=== PATIENT | male | born 1980 | race Two or more races ===

== ENCOUNTER 2020-08-21 10:28 | Outpatient (REF) | payer OTHER, SELFPAY ==
--- NOTE | 2020-08-21 10:35 | XR_ITS ---
EXAMINATION: XR CHEST CLINICAL INFORMATION: Shortness of breath. COMPARISON: None TECHNIQUE: 2 views of the chest were obtained. FINDINGS: No significant abnormality is noted involving the heart, lungs, mediastinum, bony thorax or soft tissues. XR/XR chest 2V IMPRESSION: Unremarkable chest examination.
== END 2020-08-21 10:29 | disposition home or self-care (01) ==
LOC: HO.HMGCX 10:28
PROVIDERS: PCP Nurse Practitioner Family; Visit Provider Hospitalist
DX: R06.02 Shortness of breath (principal)
CPT/HCPCS: 71046

== ENCOUNTER 2020-08-21 10:38 | Outpatient (REF) | payer OTHER, SELFPAY | END 2020-08-21 10:39 | disposition home or self-care (01) | LOC: HO.LAB 10:38 | PROVIDERS: Visit Provider Hospitalist | DX: U07.1 COVID-19 (principal) | CPT/HCPCS: U0003 ==

== ENCOUNTER 2021-04-25 16:43 | Outpatient (REF) | payer OTHER, SELFPAY | END 2021-04-25 16:44 | disposition home or self-care (01) | LOC: HO.LNP 16:43 | PROVIDERS: Visit Provider Internal Medicine | DX: J06.9 Acute upper respiratory infection, unspecified (principal); Z20.822 Contact with and (suspected) exposure to COVID-19 | CPT/HCPCS: U0003; U0005 ==

== ENCOUNTER 2021-09-13 08:28 | Outpatient (REF) | payer OTHER, SELFPAY ==
[2021-09-13 11:37] LABS: Appearance Urine HAZY; Color Urine YELLOW; Glucose Urine UA NEG (NEG); Leukocyte Esterase Urine NEG (NEG); Nitrite Urine NEG (NEG); Specific Gravity - Urine 1.015 (1.005-1.025); Urine Blood NEG (NEG); Urine Ketones NEG (NEG); Urine Protein NEG (NEG-TRACE)
[2021-09-13 12:09] LABS: Alanine Aminotransferase 13 U/L (0-40); Albumin Level 4.2 g/dL (3.5-5.0); Alkaline Phosphatase 73 U/L (39-117); Anion Gap 8 (12-20); Aspartate Amino Transferase 14 U/L (5-37); Bilirubin Total 0.7 mg/dL (0.0-1.0); Blood Urea Nitrogen 16 mg/dL (9-16); Calcium 9.3 mg/dL (8.4-10.2); Carbon Dioxide 28 mmol/L (22-29); Chloride 105 mmol/L (96-108); Cholesterol 167 mg/dL; Estimated Glomerular Filt Rate > 60; Glucose Fasting 95 mg/dL (60-99); HDL Cholesterol 43 mg/dL; LDL Cholesterol Calculated 106 mg/dl; Potassium 4.4 mmol/L (3.3-5.1); Sodium 137 mmol/L (135-145); Total Protein 7.4 g/dL (6.5-8.0); Triglycerides 91 mg/dL
[2021-09-13 12:29] LABS: TSH reflex Free T4 0.55 uIU/mL (0.32-4.0)
== END 2021-09-13 08:29 | disposition home or self-care (01) ==
LOC: HO.HMGCLDS 08:28
PROVIDERS: PCP Nurse Practitioner Family; Visit Provider Nurse Practitioner Family
DX: Z00.00 Encounter for general adult medical examination without abnormal findings (principal)
CPT/HCPCS: 36415; 80053; 80061; 81003; 84443

== ENCOUNTER 2022-10-07 12:10 | Outpatient (REF) | payer OTHER, SELFPAY ==
--- NOTE | ~2022-10-07 | XR_ITS ---
EXAMINATION: XR KNEE, RIGHT CLINICAL INFORMATION: Knee sprain. COMPARISON: None TECHNIQUE: Four views of the right knee. FINDINGS: Bones and soft tissues appear unremarkable. No fracture or joint effusion appreciated. Alignment is anatomic. Joint spaces are well maintained. No abnormal soft tissue calcification. XR/XR knee RT 4V IMPRESSION: Normal plain film examination of the right knee.
== END 2022-10-07 12:11 | disposition home or self-care (01) ==
LOC: HO.HMGCX 12:10
PROVIDERS: PCP Nurse Practitioner Family; Visit Provider Internal Medicine
DX: S83.91XA Sprain of unspecified site of right knee, initial encounter (principal)
CPT/HCPCS: 73564

== ENCOUNTER 2022-11-21 21:52 | Emergency (ER) | payer OTHER, SELFPAY ==
--- NOTE | ~2022-11-21 | XR_ITS ---
EXAMINATION: XR CHEST CLINICAL INFORMATION: Chest pain COMPARISON: None available. TECHNIQUE: Frontal view of the chest was obtained. FINDINGS: No significant abnormality is noted involving the heart, lungs, mediastinum, bony thorax or soft tissues. XR/XR chest 1V IMPRESSION: Unremarkable chest examination.
--- NOTE | 2022-11-21 21:57 | ECG_ITS ---
Test Reason : CHEST PAIN Blood Pressure : / mmHG Vent. Rate : 076 BPM Atrial Rate : 076 BPM P-R Int : 152 ms QRS Dur : 088 ms QT Int : 368 ms P-R-T Axes : 030 024 010 degrees QTc Int : 414 ms Normal sinus rhythm Cannot rule out Inferior infarct , age undetermined Abnormal ECG No previous ECGs available Referred By: Generic ED Physician Electronically Signed By:JOSE MANUEL CONCEPCION MD
[2022-11-21 21:58] VITALS: BP 146/92; PULSE 88; RESP 16; TEMP 36.8; O2SAT 97; BMI 41.5
[2022-11-21 22:15] LABS: MANUAL DIFF FLAG NO
[2022-11-21 22:16] LABS: Basophils Percent Auto 0.3 % (0-2); Eosinophils Absolute Auto 0.1 X10*3/uL (0.0-0.4); Hematocrit 41.7 % (42.0-52.0); Hemoglobin 14.6 g/dl (14.0-18.0); Imm Gran Abs Auto 0.04 X10*3/uL (0.00-0.03); Imm Gran Pct Auto 0.4 % (0.0-0.4); Lymphocytes Absolute Auto 2.6 X10*3/uL (1.2-4.9); Lymphocytes Percent Auto 26.2 % (20-40); Mean Corpuscular Hemoglobin 29.9 pg (27.0-33.0); Mean Corpuscular Volume 85.3 fL (80.0-98.0); Mean Platelet Volume 8.4 fL (9.4-12.4); Monocytes Percent Auto 10.6 % (2-11); Neutrophils Percent Auto 61.5 % (45-73); Platelet Count 301 X10*3/uL (160-400); Red Blood Count 4.89 X10*6/uL (4.60-5.80); Red Cell Distribution Width 12.2 % (11.0-16.0); White Blood Count 9.8 X10*3/uL (4.8-10.8)
[2022-11-21 22:23] VITALS: BP 143/82; PULSE 89; RESP 16; TEMP 36.9; O2SAT 97
[2022-11-21 22:34] LABS: Anion Gap 13 (12-20); Blood Urea Nitrogen 16 mg/dL (9-16); Calcium 9.2 mg/dL (8.4-10.2); Carbon Dioxide 26 mmol/L (22-29); Chloride 104 mmol/L (96-108); Creatinine Clr Calc Pharmacy 110.8; Estimated Glomerular Filt Rate > 60; Glucose Random 97 mg/dL (60-115); Sodium 139 mmol/L (135-145)
--- NOTE | 2022-11-21 22:47 | ED_ITS ---
HPI - Chest Pain General Chief Complaint: Chest Pain Stated Complaint: headache,chest pain Time Seen by Provider: 11/21/22 22:43 Source: patient Mode of arrival: ambulatory Limitations: no limitations History of Present Illness HPI narrative: Patient obese complaining of headache body aches for last few days got worse today notices blood pressure also 150/80 range. Patient has gained weight lately does snore in the night no diagnosis of sleep apnea as such but whenever he gets up in the morning feels tired and has headaches. No head injury no chest pain or palpitation no shortness of breath but patient feels exhausted Related Data Previous Rx's Medication Instructions Recorded meloxicam 15 mg tablet 15 mg PO DAILY #14 tabs 10/07/22 Allergies Allergy/AdvReac Type Severity Reaction Status Date / Time No Known Allergies Allergy Verified 11/21/22 21:58 Review of Systems Review of Systems: Yes all other systems are reviewed and are negative PENDING SALE TO [facility] Social History Social History Housing: House Alcohol intake: current Alcohol intake frequency: holidays/special occasions only Patient Tobacco Use Status: Former Tobacco user Years Smoked: quit 14 years ago Smoked in Last 30 Days: Yes e-Cigarette/Vaping Use: Currently Using Second Hand Smoke Exposure: No Use of substances other than those prescribed or required for medical reasons: No Advance Directives: No Advance Directives Information Provided: No service: No Current occupational status: employed Current occupation: [employer] Current occupational exposures/hazards: Yes Physical Exam Vital Signs: Vital Signs: Last Vital Signs Temp 98.4 F 11/21/22 22:23 Pulse 76 11/22/22 00:31 Resp 20 11/22/22 00:31 BP 131/59 L 11/22/22 00:31 Pulse Ox 97 11/22/22 00:31 O2 Del Method Room Air 11/22/22 00:31 BMI result Body Mass Index 41.5 Appearance: Alert. Oriented X3. No acute distress. Eyes: PERRLA, No Nystagmus ENT: Pharynx normal. Oral Mucosa moist Neck: Normal inspection. Neck supple. Short neck CVS: Normal heart rate and rhythm. Pulses normal. Respiratory: No respiratory distress. Equal air entry bilateral, no wheezing/rales/rhonchi Abdomen: Soft and nontender. Bowel sounds are present, no mass palpable, no CVA tenderness Skin: Skin warm and dry. Normal skin color. Normal skin turgor. Extremities: No lower extremity edema. No calf tenderness Neuro: Oriented X 3. No motor deficit. No sensory deficit.No cerebellar signs , cranial nerves II-XII intact Medical Decision Making Medical Decision Making [facility] Narrative: Patient obese Phys pre snoring likely has apneic spell likely has obstructive sleep apnea patient unaware of this. Labs are stable venous gases showed normal pCO2 level. Headache is not severe patient took Advil prior to arrival and feels better. Patient advised to follow-up with trial court judge for sleep studies. Repeat blood pressure was normal 131/59 Lab Data [facility] Lab Attestation statement: I reviewed the patient's lab results. 11/21/22 22:10 11/21/22 22:10 Labs: Lab Results 11/21/22 11/21/22 11/21/22 Range/Units 22:10 22:10 22:10 WBC 9.8 (4.8-10.8) X10*3/uL RBC 4.89 (4.60-5.80) X10*6/uL Hgb 14.6 (14.0-18.0) g/dl Hct 41.7 L (42.0-52.0) % MCV 85.3 (80.0-98.0) fL MCH 29.9 (27.0-33.0) pg MCHC 35.0 (31.0-36.0) g/dl RDW 12.2 (11.0-16.0) % Plt Count 301 (160-400) X10*3/uL MPV 8.4 L (9.4-12.4) fL Immature Gran % (Auto) 0.4 (0.0-0.4) % Neut % (Auto) 61.5 (45-73) % Lymph % (Auto) 26.2 (20-40) % Blanco % (Auto) 10.6 (2-11) % Eos % (Auto) 1.0 (0-4) % Baso % (Auto) 0.3 (0-2) % Lymph # (Auto) 2.6 (1.2-4.9) X10*3/uL Blanco # (Auto) 1.0 (0.1-1.2) X10*3/uL Eos # (Auto) 0.1 (0.0-0.4) X10*3/uL Baso # (Auto) 0.0 (0.0-0.2) X10*3/uL Abs Immat Gran (auto) 0.04 H (0.00-0.03) X10*3/uL Absolute Neuts (auto) 6.0 (2.0-8.3) x10*3/uL Absolute Nucleated RBC 0.000 (0.0-0.012) X10*3/uL Nucleated RBC % (auto) 0.0 (0.0-0.2) /100WBC VBG pH (7.32-7.43) VBG pCO2 mmHg VBG pO2 mmHg VBG HCO3 (22-26) mmol/L VBG O2 Saturation % VBG Base Excess mmol/L Sodium 139 (135-145) mmol/L Potassium 4.0 (3.3-5.1) mmol/L Chloride 104 (96-108) mmol/L Carbon Dioxide 26 (22-29) mmol/L Anion Gap 13 (12-20) BUN 16 (9-16) mg/dL Creatinine 1.01 (0.5-1.4) mg/dL Estim Creat Clear Calc 110.8 Estimated GFR > 60 Random Glucose 97 (60-115) mg/dL Calcium 9.2 (8.4-10.2) mg/dL Troponin I High Sens < 3.5 (<3.5-35.0) ng/L COVID-19 ([facility]) (Negative) COVID-19 Clin Com 11/21/22 11/21/22 Range/Units 23:28 23:36 WBC (4.8-10.8) X10*3/uL RBC (4.60-5.80) X10*6/uL Hgb (14.0-18.0) g/dl Hct (42.0-52.0) % MCV (80.0-98.0) fL MCH (27.0-33.0) pg MCHC (31.0-36.0) g/dl RDW (11.0-16.0) % Plt Count (160-400) X10*3/uL MPV (9.4-12.4) fL Immature Gran % (Auto) (0.0-0.4) % Neut % (Auto) (45-73) % Lymph % (Auto) (20-40) % Blanco % (Auto) (2-11) % Eos % (Auto) (0-4) % Baso % (Auto) (0-2) % Lymph # (Auto) (1.2-4.9) X10*3/uL Blanco # (Auto) (0.1-1.2) X10*3/uL Eos # (Auto) (0.0-0.4) X10*3/uL Baso # (Auto) (0.0-0.2) X10*3/uL Abs Immat Gran (auto) (0.00-0.03) X10*3/uL Absolute Neuts (auto) (2.0-8.3) x10*3/uL Absolute Nucleated RBC (0.0-0.012) X10*3/uL Nucleated RBC % (auto) (0.0-0.2) /100WBC VBG pH 7.41 (7.32-7.43) VBG pCO2 36 mmHg VBG pO2 53 mmHg VBG HCO3 23 (22-26) mmol/L VBG O2 Saturation 84.0 % VBG Base Excess -0.6 mmol/L Sodium (135-145) mmol/L Potassium (3.3-5.1) mmol/L Chloride (96-108) mmol/L Carbon Dioxide (22-29) mmol/L Anion Gap (12-20) BUN (9-16) mg/dL Creatinine (0.5-1.4) mg/dL Estim Creat Clear Calc Estimated GFR Random Glucose (60-115) mg/dL Calcium (8.4-10.2) mg/dL Troponin I High Sens (<3.5-35.0) ng/L COVID-19 ([facility]) Negative (Negative) COVID-19 Clin Com See Note Independent Interpretation I performed an independent interpretation of an: EKG Interpretation: Number sinus rhythm heart rate 76 beats per minute normal interval normal axis no acute ST changes no acute ischemia Discharge Plan Discharge Clinical Impression: Obstructive sleep apnea Patient Disposition: Home, Self-Care Instructions: Sleep Apnea (DC) Additional Instructions: Likely you have sleep apnea Try to reduce weight Follow-up with trial court judge for further studies Prescriptions: No Action meloxicam 15 mg tablet 15 mg PO DAILY Qty: 14 0RF Referrals: Brian Clark MD [Physician] - 1 week Stand Alone Forms: Work/School Release Interventions: ED Discharge Assessment Last Done: 11/22/22 00:35 Discharge Date/Time: 11/22/22 00:37
[2022-11-21 22:50] LABS: Troponin-I High Sensitivity < 3.5 ng/L (<3.5-35.0)
[2022-11-21 23:24] VITALS: BP 113/67; PULSE 75; RESP 16
[2022-11-21 23:44] LABS: Venous Blood Gas Refer to POC result
[2022-11-21 23:44] LABS: VBG Base Excess -0.6 mmol/L; VBG HCO3 23 mmol/L (22-26); VBG pCO2 36 mmHg; VBG pH 7.41 (7.32-7.43); VBG pO2 53 mmHg
--- NOTE | 2022-11-21 23:45 | PC.NURSE ---
Pt A&Ox4, denies any pain, reports intermittent CP now resolved, started midday today with a headache. Pt reports it started on left side of chest radiated to upper left shoulder. Pt on bedside monitor, HR 75 NSR , VSS. VBG blood work collected and sent to lab by internal medicine veterinary technician.
[2022-11-21 23:54] LABS: COVID-19 Test Negative (Negative); IDNOW Serial# 9DB6401D
[2022-11-22 00:31] VITALS: BP 131/59; PULSE 76; RESP 20; O2SAT 97
== END 2022-11-22 00:37 | disposition home or self-care (01) ==
PROVIDERS: Emergency Provider Internal Medicine; PCP Nurse Practitioner Family
DX: R06.83 Snoring (principal); G47.33 Obstructive sleep apnea (adult) (pediatric); R51.9 Headache, unspecified; R53.83 Other fatigue; Z20.822 Contact with and (suspected) exposure to COVID-19
CPT/HCPCS: 36415; 71045; 80048; 82803; 84484; 85025; 87635; 93005; 99283; 99285

== ENCOUNTER 2023-10-20 07:35 | Outpatient (AMB) | payer OTHER, SELFPAY ==
--- NOTE | 2023-10-20 07:38 | A.OFFPC_ITS ---
Vital Signs 10/20/23 07:40 Height 5 ft 5 in Weight 262 lb BMI 43.6 BP 104/62 Blood Pressure Location Rt brachial Position Sitting Pulse 60 Pulse Source Pulse Oximeter Pulse Oximetry (%) 100 Oxygen Delivery Method Room Air Intake Visit Reasons: PHY Intake Note: Pt is here today for his PE Allergies No Known Allergies Allergy (Verified 10/20/23 07:38) Medication List - Last Reconciled 10/20/23 by ELIZABETH Blood No Known Home Meds Tobacco use date assessed: 10/20/23 Dental Screening Dental Screen Date: 10/20/23 Did you have a dental visit in the last 12 months?: Yes Did you have a dental problem in the last 6 months where you did not have access to dental care?: No Was dental information given to patient?: Patient has dentist HPI PHY HPI Details Pt is here for a PE. Will order labs. PFSH Family History Maternal Uncle Mental health disorder Social History Housing: House Alcohol intake: current Alcohol intake frequency: holidays/special occasions only Patient Tobacco Use Status: Former Tobacco user Years Smoked: quit 14 years ago e-Cigarette/Vaping Use: Currently Using Second Hand Smoke Exposure: No service: No Current occupational status: employed Current occupation: [employer] Current occupational exposures/hazards: Yes Questionnaire PHQ-9 Over the last 2 weeks, how often have you been bothered by any of the following problems? 1. Little interest or pleasure in doing things: not at all 2. Feeling down, depressed, or hopeless: not at all 3. Trouble falling or staying asleep, or sleeping too much: not at all 4. Feeling tired or having little energy: not at all 5. Poor appetite or overeating: not at all 6. Feeling bad about yourself - or that you are a failure or have let yourself or your family down: not at all 7. Trouble concentrating on things, such as reading the newspaper or watching television: not at all 8. Moving or speaking so slowly that other people could have noticed. Or the opposite - being so fidgety or restless that you have been moving around a lot more than usual: not at all 9. Thoughts that you would be better off or of hurting yourself in some way: not at all Total score: 0 Depression Screening Interpretation: Negative Depression Screening Done: Yes 37215 - PHQ-9 Billing: Yes Source: Developed by Drs. Jp Plunkett, Tamika Esteban, Neville Fry and colleagues, with an educational medina from [employer]. Thrive Questionnaire Date Thrive assessed: 10/20/23 I am a: Patient What is your living situation today?: I have a steady place to live Within the past 12 months, did the food you bought not last and you didn't have the money to get more?: Never true Within the past 12 months, did you worry whether your food would run out before you got money to buy more?: Never true Do you have trouble paying for medicines?: No Do you have trouble getting transportation to medical appointments?: No Do you have trouble paying your heating and electricity bill?: No Do you have trouble taking care of your child, family member or friend?: No Do you have trouble with day-to-day activities such as bathing, preparing meals, shopping, managing finances, etc.?: No Are you currently unemployed and looking for a job?: No Are you interested in more education?: No Currently or been in a relationship where the following occur: no concerns reported THRIVE Score: 0 AUDIT C Alcohol Use Questionnaire (AUDIT-C) 1. How often do you have a drink containing alcohol?: Monthly or less 2. How many drinks containing alcohol do you have on a typical day when you are drinking?: 1 or 2 3. How often do you have six or more drinks on one occasion?: Never Total Score: 1 Score Reviewed/Action Taken: Yes GURINDER-7 AMB Questionnaire GURINDER-7 Date GURINDER - 7 assessed: 10/20/23 Feeling nervous, anxious, or on edge: 0 = Not at all Not being able to stop or control worryin = Not at all Worrying too much about different things: 0 = Not at all Trouble relaxin = Not at all Being so restless that it is hard to sit still: 1 = Several days Becoming easily annoyed or irritable: 1 = Several days Feeling afraid as if something awful might happen: 0 = Not at all Total GURINDER-7 score (0-4 normal; 5-9 mild; 10-14 moderate; 15-21 severe): 2 Source: Developed by Drs. Jp Plunkett, Tamika Esteban, Neville Fry and colleagues, with an educational medina from [employer]. GURINDER-7 Assessment Billing GURINDER-7 Assessment Tool: GURINDER-7 Assessment 06070 Review of Systems Const Denies chills and Denies fever(s) Eyes Denies blurry vision ENT Denies vertigo, Denies dizziness and Denies sore throat Card Denies chest pain at rest, Denies chest pain with activity, Denies diaphoresis, Denies dyspnea and Denies dyspnea on exertion Resp Denies cough, Denies dyspnea, Denies dyspnea on exertion and Denies wheezing GI Denies abdominal pain, Denies melena, Denies hematochezia, Denies constipation, Denies diarrhea and Denies loose stools Denies hematuria Musc Denies numbness and Denies tingling Skin/Breast Denies lesions Neuro Denies vertigo, Denies dizziness, Denies numbness and Denies tingling Psych Denies anxiety, Denies depression, Denies homicidal ideation, Denies suicidal ideation and Denies other (substance abuse) Aller/Immun Denies wheezing Physical exam (Primary Care) Vital Signs: Last Vital Signs Pulse 60 10/20/23 07:40 BP 104/62 10/20/23 07:40 Pulse Ox 100 10/20/23 07:40 Oxygen Delivery Method Room Air 10/20/23 07:40 BMI result Body Mass Index 43.6 Tobacco/Smoking Status: Tobacco use Status Tobacco use date assessed 10/20/23 10/20/23 07:43 Patient Tobacco Use Status Former Tobacco user 10/20/23 07:43 e-Cigarette/Vaping Use Currently Using 10/20/23 07:43 Depression Screening Interpretation: Negative Thrive Assessment: Date of Thrive Assessment Date Thrive assessed 09/12/21 10/20/23 07:43 Currently or been in a relationship where the following occur: no concerns repor maureen Const General: cooperative Nutritional Appearance: obese morbidly obese Orientation/consciousness: patient oriented x3 HENMT Head: Yes normal to inspection, Yes normocephalic and Yes atraumatic Ears: TM's normal bilaterally Eyes General: appearance normal, both eyes and all related structures Alignment and Position: alignment normal and position normal Neck Neck: Yes normal visual inspection and Yes no lymphadenopathy Thyroid: Thyroid normal Resp Effort & Inspection: normal respiratory effort Auscultation: clear to auscultation bilaterally Cardio Rate: regular rate Rhythm: regular rhythm Heart sounds: S1 normal heart sound present, S2 normal heart sound present and no murmurs GI Palpation (GI): Soft to palpation and nontender Auscultation: normal bowel sounds Male General Exam: Yes normal external exam Penis: normal penis Scrotum: scrotum normal, testes descended bilaterally and no inguinal hernias Testes: no testicular mass Skin Rashes: no rashes Neuro General: patient oriented x3, moves all extremities, no focal motor deficits and deep tendon reflexes 2+ bilaterally Romberg Test: Negative Psych Appearance: grossly normal Mental Status: mental status grossly normal Speech and movement: Normal speech and movement present Affect: normal affect Attitude: cooperative Thought process: Normal thought process present Thought content: Normal thought content present Insight: Good insight present (Psych) Judgement: Good judgement present (Psych) Assessment and Plan Assessment & Plan (1) Physical exam: Code(s): Z00.00 - Encounter for general adult medical examination without abnormal findings Plan: Labs ordered Plan The patient agreed to the use of a bacteriologist medical for this encounter. Scribed for ELIZABETH Bae by Vane Farooq bacteriologist medical, on 10/20/2023 at 07:50 EST. Orders: Orders Complete Blood Count Auto Diff Today Z00.00 - Encounter for general adult medical examination without abnormal findings Comprehensive [place]. Panel Fast Today Z00.00 - Encounter for general adult medical examination without abnormal findings TSH reflex Free T4 Today Z00.00 - Encounter for general adult medical examination without abnormal findings UA CC w/rflx Micro + Cult Today Z00.00 - Encounter for general adult medical examination without abnormal findings Lipid Panel Today Z00.00 - Encounter for general adult medical examination without abnormal findings Coding Level of Care Code Est Pt Prev Care 40-64y(64393) Diagnoses Physical exam Z00. Additional Codes GURINDER-7 Assessment Billing - GURINDER-7 Assessment Tool: GURINDER-7 Assessment [id number] ([id number])
[2023-10-20 07:40] VITALS: BP 104/62; PULSE 60; O2SAT 100; BMI 43.6
== END 2023-10-20 07:56 | disposition home or self-care (01) ==
PROVIDERS: PCP Nurse Practitioner Family; Visit Provider Nurse Practitioner Family
DX: Z00.00 Encounter for general adult medical examination without abnormal findings (principal)
CPT/HCPCS: 99396

== ENCOUNTER 2023-10-20 07:56 | Outpatient (REF) | payer OTHER, SELFPAY ==
[2023-10-20 10:57] LABS: MANUAL DIFF FLAG NO
[2023-10-20 11:06] LABS: Appearance Urine Clear; Color Urine Dark Yellow; Glucose Urine UA Negative (Negative); Leukocyte Esterase Urine Negative (Negative); Nitrite Urine Negative (Negative); PH 6.5 (5.0-9.0); Specific Gravity - Urine >= 1.030 (1.005-1.025); Urine Blood Negative (Negative); Urine Ketones Trace mg/dL (Negative); Urine Protein Negative (Neg-Trace)
[2023-10-20 11:08] LABS: Basophils Percent Auto 0.3 % (0-2); Eosinophils Absolute Auto 0.1 X10*3/uL (0.0-0.4); Eosinophils Percent Auto 1.1 % (0-4); Hematocrit 42.7 % (42.0-52.0); Imm Gran Abs Auto 0.03 X10*3/uL (0.00-0.03); Imm Gran Pct Auto 0.4 % (0.0-0.4); Lymphocytes Absolute Auto 1.6 X10*3/uL (1.2-4.9); Mean Corpuscular HGB Conc 35.1 g/dl (31.0-36.0); Mean Corpuscular Hemoglobin 30.5 pg (27.0-33.0); Mean Platelet Volume 9.1 fL (9.4-12.4); Monocytes Absolute Auto 0.8 X10*3/uL (0.1-1.2); Monocytes Percent Auto 9.9 % (2-11); Neutrophils Absolute Auto 5.4 x10*3/uL (2.0-8.3); Neutrophils Percent Auto 68.3 % (45-73); Platelet Count 285 X10*3/uL (160-400); Red Blood Count 4.91 X10*6/uL (4.60-5.80); Red Cell Distribution Width 12.4 % (11.0-16.0); White Blood Count 7.9 X10*3/uL (4.8-10.8)
[2023-10-20 11:32] LABS: Alanine Aminotransferase 23 U/L (0-40); Albumin Level 4.2 g/dL (3.5-5.0); Alkaline Phosphatase 68 U/L (39-117); Anion Gap 12 (12-20); Aspartate Amino Transferase 18 U/L (5-37); Bilirubin Total 0.6 mg/dL (0.0-1.0); Blood Urea Nitrogen 14 mg/dL (9-16); Calcium 9.4 mg/dL (8.4-10.2); Carbon Dioxide 26 mmol/L (22-29); Chloride 102 mmol/L (96-108); Cholesterol 173 mg/dL (<200); Estimated Glomerular Filt Rate > 60; Glucose Fasting 106 mg/dL (60-99); HDL Cholesterol 44 mg/dL (>40); LDL Cholesterol Calculated 107 mg/dL (<100); Potassium 3.6 mmol/L (3.3-5.1); Sodium 136 mmol/L (135-145); Total Protein 7.5 g/dL (6.5-8.0); Triglycerides 112 mg/dL (<150)
[2023-10-20 11:52] LABS: TSH reflex Free T4 0.95 uIU/mL (0.32-4.0)
== END 2023-10-20 07:57 | disposition home or self-care (01) ==
LOC: HO.HMGCLDS 07:56
PROVIDERS: PCP Nurse Practitioner Family; Visit Provider Nurse Practitioner Family
DX: Z00.00 Encounter for general adult medical examination without abnormal findings (principal)
CPT/HCPCS: 36415; 80053; 80061; 81003; 84443; 85025

== ENCOUNTER 2024-07-05 08:06 | Outpatient (AMB) | payer OTHER, SELFPAY ==
[2024-07-05 08:15] VITALS: BP 112/76; PULSE 88; O2SAT 97; BMI 43.6
--- NOTE | 2024-07-05 08:15 | AM.OFFWIN_ITS ---
Intake Vital Signs 07/05/24 08:15 Height 5 ft 5 in Weight 262 lb BMI 43.6 BP 112/76 Blood Pressure Location Rt brachial Position Sitting Pulse 88 Pulse Source Pulse Oximeter Pulse Oximetry (%) 97 Intake Visit Reasons: EP lower back pain over 2 weeks Patient Tobacco Use Status: Former Tobacco user Allergies No Known Allergies Allergy (Verified 10/20/23 07:38) HPI HPI Comments History of Present Illness Details Patient is a 43-year-old male complaining over 2 weeks of low back pain that radiates into his buttocks and around the front of his thighs. He denies any loss of control of his bladder or bowels, fevers, nausea, vomiting, diarrhea, pain with urination, or blood in his urine. 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 He has tried Tylenol ibuprofen with minimal relief. He has also tried patches on his low back and that seems to help for a little while. He is tells me it seems to be the same and not getting any better over time. PFSH Family History Maternal Uncle Mental health disorder Social History Housing: House Alcohol intake: current Alcohol intake frequency: holidays/special occasions only Patient Tobacco Use Status: Former Tobacco user Years Smoked: quit 14 years ago e-Cigarette/Vaping Use: Currently Using Second Hand Smoke Exposure: No service: No Current occupational status: employed Current occupation: [employer] Current occupational exposures/hazards: Yes Review of Systems Const All systems reviewed & are unremarkable except as noted in HPI and below Physical Exam Vital Signs: Last Vital Signs Pulse 88 07/05/24 08:15 BP 112/76 07/05/24 08:15 Pulse Ox 97 07/05/24 08:15 BMI result Body Mass Index 43.6 Const General: cooperative, healthy appearing and comfortable Orientation/consciousness: patient oriented x3 HEENT Head: Yes normal to inspection and Yes normocephalic General nose exam: Normal external nose present Face and sinus: Yes normal facial exam Eyes General: appearance normal, both eyes and all related structures Resp Effort & Inspection: normal respiratory effort and able to speak in complete sentences Back/Spine/Pelvis Cervical Spine: cervical ROM normal and No Cervical spine tenderness Thoracic/Lumbar Spine: thoracic and lumbar spine normal to inspection, straight leg raise negative bilaterally, pain with thoraco-lumbar ROM, No thoraco-lumbar spasm, No thoracic spinal tenderness and No lumbar spinal tenderness Neuro General: patient oriented x3 Extrem Other: Straight leg raise test negative on right; Straight leg raise test negative on left; Reflexes normal ankle and knee bilaterally; motor strength normal bilaterally Assessment & Plan Assessment & Plan (1) Low back pain: Code(s): M54.5 - Low back pain Qualifiers: Chronicity: acute Back pain laterality: bilateral Sciatica presence: without sciatica Qualified Code(s): M54.5 - Low back pain Plan: Discussed risks and benefits of prednisone use, recommended he add Aleve and ice as well as rest. If no improvement in his pain, he should follow up with his PCP in the next 1-2 weeks. If he should lose control of his bladder or bowels, he should go to the emergency room immediately. Plan See above Medications: New prednisone 20 mg PO QAM 5 tabs 0RF Coding Level of Care Code Est Pt Level 3 (91633) Diagnoses Acute bilateral low back pain without sciatica M54.5 Chronicity: acute Back pain laterality: bilateral Sciatica presence: without sciatica
== END 2024-07-05 08:44 | disposition home or self-care (01) ==
PROVIDERS: PCP Nurse Practitioner Family; Visit Provider Physician Assistant
DX: M54.50 Low back pain, unspecified (principal)

== ENCOUNTER → 2024-07-05 08:06 | Outpatient (BNVA) | payer OTHER, SELFPAY | PROVIDERS: PCP Nurse Practitioner Family; Visit Provider Physician Assistant ==

== ENCOUNTER → 2024-09-24 08:17 | Outpatient (BNVA) | payer OTHER, SELFPAY | PROVIDERS: PCP Nurse Practitioner Family; Visit Provider Physician Assistant ==

== ENCOUNTER 2024-11-10 07:31 | Outpatient (AMB) | payer OTHER, SELFPAY ==
[2024-11-10 07:35] VITALS: BP 118/78; PULSE 75; RESP 15; TEMP 36.9; O2SAT 96; BMI 45.9
--- NOTE | 2024-11-10 07:35 | A.OFFPC_ITS ---
Vital Signs 11/10/24 07:35 Height 5 ft 5 in Weight 276 lb BMI 45.9 BP 118/78 Blood Pressure Location Rt brachial Position Sitting Respiration 15 Pulse 75 Pulse Source Pulse Oximeter Temp 98.5 F Temp Source Oral Pulse Oximetry (%) 96 Oxygen Delivery Method Room Air Intake Visit Reasons: ANNUAL PE Intake Note: Pt is here today for his PE Allergies No Known Allergies Allergy (Verified 11/10/24 07:50) Medication List - Last Reconciled 11/10/24 by ELIZABETH Blood No Known Home Meds Tobacco use date assessed: 11/10/24 Dental Screening Dental Screen Date: 11/10/24 Did you have a dental visit in the last 12 months?: Yes Did you have a dental problem in the last 6 months where you did not have access to dental care?: No Was dental information given to patient?: Patient has dentist HPI ANNUAL PE HPI Details History of Present Illness The patient is a 44-year-old male presenting for a wellness visit to discuss obesity. He has a known history of considerable weight loss, having successfully lost 60 pounds previously through lifestyle modifications including reduction of portion sizes, dietary monitoring, and increased physical activity. Presently, he reports no new or ongoing symptoms such as chest pain, respiratory issues, gastrointestinal disruptions, or mental health concerns. He remains asymptomatic apart from his weight concerns, and there is a focus on reinstating effective lifestyle changes to manage his obesity. No other medical interventions have been pursued or discussed for his weight management during this visit. Health Maintenance - Emphasis on portion control and dietar y monitoring for weight management - Increased physical activity as part of obesity management Social History - Plans to cut down portion sizes - Intends to monitor dietary intake clos nancy - Aims to increase physical activity Review of Systems - Cardiovascular: Denies chest pain - Respiratory: Denies shortness of breat h - Gastrointestinal: Denies nausea, vomit ing, constipation, or diarrhea - Psychiatric: Denies anxiety, depressio n, suicidal ideation, or homicidal ideation Physical Exam General: Cooperative, healthy appearing, comfortable, no acute distress and well developed, obese Orientation: Patient oriented x3 Limitations: No limitations Head: Normal to inspection Ears: Hearing grossly normal bilaterally Nose: Normal external nose present Face and sinus: Normal facial exam Eyes: Appearance normal, both eyes and all related structures Neck: Normal visual inspection and Yes full ROM Respiratory: Normal respiratory effort and able to speak in complete sentences. Clear to auscultation bilaterally Cardiovascular: Regular rate and rhythm. Normal S1 and S2 GI: Normal to inspection. Soft to palpation and nontender Skin: No rashes or lesions noted Neuro: Patient oriented x3 Extremities: Normal to inspection Results Plan In addressing obesity, the patient will engage in lifestyle modifications, specifically reducing portion sizes, monitoring dietary intake, and increasing physical activity. These measures have been effective for him in the past and will be the primary strategies employed. A follow-up is scheduled for one year to evaluate his progress and adjust the plan as needed. Discussion Notes During the visit, I discussed with the patient his condition of obesity and emphasized the importance of lifestyle changes as the primary management strategy. We focused on the benefits of portion control, dietary monitoring, and physical activity. No medication or surgery was considered at this stage. The patient is aware of the steps needed and is committed to taking action. We discussed the follow-up plan, which includes reassessment in one year, and he intends to have fasting labs done today. Patient Instructions - Practice portion control by reducing s erving sizes - Monitor dietary intake closely to ensu re balanced nutrition - Engage in regular physical activity to aid in weight management - Schedule a follow-up appointment in on e year to evaluate progress - Complete fasting labs as instructed to desiree [facility] Family History Maternal Uncle Mental health disorder Social History Housing: House Alcohol intake: current Alcohol intake frequency: holidays/special occasions only Patient Tobacco Use Status: Former Tobacco user Years Smoked: quit 14 years ago e-Cigarette/Vaping Use: Currently Using Second Hand Smoke Exposure: No service: No Current occupational status: employed Current occupation: [employer] Current occupational exposures/hazards: Yes Cognitive needs: No Hearing needs: No Vision needs: No Questionnaire PHQ-9 Over the last 2 weeks, how often have you been bothered by any of the following problems? 43083 - PHQ-9 Billing: Patient declined-do not bill Source: Developed by Drs. Jp Plunkett, Tamika Esteban, Neville Fry and colleagues, with an educational medina from [employer]. Thrive Questionnaire Date Thrive assessed: 11/03/24 I am a: Patient What is your living situation today?: I choose not to answer this question Within the past 12 months, did the food you bought not last and you didn't have the money to get more?: I choose not to answer this question Within the past 12 months, did you worry whether your food would run out before you got money to buy more?: I choose not to answer this question Do you have trouble paying for medicines?: I choose not to answer this question Do you have trouble getting transportation to medical appointments?: I choose not to answer this question Do you have trouble paying your heating and electricity bill?: I choose not to answer this question Do you have trouble taking care of your child, family member or friend?: I choose not to answer this question Do you have trouble with day-to-day activities such as bathing, preparing meals, shopping, managing finances, etc.?: I choose not to answer this question Are you currently unemployed and looking for a job?: I choose not to answer this question Are you interested in more education?: I choose not to answer this question Please select the resources that you would like help with: None Currently or been in a relationship where the following occur: I choose not to answer THRIVE Score: 0 GURINDER-7 AMB Questionnaire GURINDER-7 Date GURINDER - 7 assessed: 10/20/23 Source: Developed by Drs. Jp Plunkett, Tamika Esteban, Neville Fry and colleagues, with an educational medina from [employer]. Physical exam (Primary Care) Vital Signs: Last Vital Signs Temp 98.5 F 11/10/24 07:35 Pulse 75 11/10/24 07:35 Resp 15 11/10/24 07:35 BP 118/78 11/10/24 07:35 Pulse Ox 96 11/10/24 07:35 Oxygen Delivery Method Room Air 11/10/24 07:35 BMI result Body Mass Index 45.9 Tobacco/Smoking Status: Tobacco use Status Tobacco use date assessed 11/10/24 11/10/24 07:36 Patient Tobacco Use Status Former Tobacco user 11/10/24 07:36 e-Cigarette/Vaping Use Currently Using 11/10/24 07:36 Thrive Assessment: Date of Thrive Assessment Date Thrive assessed 11/03/24 11/10/24 07:36 Currently or been in a relationship where the following occur: I choose not to answer Coding Level of Care Code Est Pt Prev Care 40-64y(36516) Diagnoses Physical exam Z00.00 Obesity E66.9 Assessment & Plan Assessment & Plan (1) Physical exam: Code(s): Z00.00 - Encounter for general adult medical examination without abnormal findings Category: Medical (2) Obesity: Code(s): E66.9 - Obesity, unspecified Category: Medical Plan . Orders: Orders Lipid Panel Today Z00.00 - Encounter for general adult medical examination without abnormal findings Complete Blood Count Auto Diff Today Z00.00 - Encounter for general adult medical examination without abnormal findings Comprehensive [place]. Panel Fast Today Z00.00 - Encounter for general adult medical examination without abnormal findings TSH reflex Free T4 Today Z00.00 - Encounter for general adult medical examination without abnormal findings UA CC w/rflx Micro + Cult Today Z00.00 - Encounter for general adult medical examination without abnormal findings
--- OUTSIDE RECORDS SUMMARY | 2024-11-10 07:35 | XMS_ITS | Data Portability ---
Author Organization [facility], Main Office Address [address] [facility] [address] [place] [id number] Care Team Providers Care Broacher Name Role Phone JORGEPETER MATHIAS Primary Care Provider RACHEL DE ANDA OTHER Assessment Encounter Date Assessment Date Assessment LastModified by Organization Details LastModified Time 11/10/2015 11/10/2015 Viral URI symptoms. Reassurance and work note. Follow up as needed.? ? ? [email or web address] Not available 11/12/2015 15:26:40 Plan of Treatment Reminders Order Date Submit Date Provider Last Modified By Organization Details Last Modified Time Details Appointments None record ed. Lab TSH, serum or plasma 2016 017 [facility], [address], [place] [address], [address], 7 15:04:22 vitami n D, 25-hyd clifton, total, serum 2016 017 [facility], [address], [address], [place], [address], 7 01:42:57 HBsAg (hepat itis B surfac e Ag), serum 2016 017 [facility], [address], [place] [address], [address], 7 12:33:48 CT, DNA, qual, PCR, unspec ified specim en 2016 017 [facility], [address], [address], [place], [address], 7 13:14:07 NG DNA, PCR, urine 2016 017 [facility], [address], [address], [place], [address], 7 13:14:08 RPR (rapid plasma reagin ), titer, serum 2016 017 [facility], [address], [address], [place], [address], 7 13:44:32 HIV 1+2 AB + HIV 1 p24 Ag, qualit ative immuno assay, serum 2016 017 [facility], [address], [address], [place], [address], 7 16:23:35 hepati tis C virus Ab, serum 2016 017 [facility], [address], [address], [place], [address], 7 13:49:21 lipid panel, serum 2016 017 [facility], [address], [address], [place], [address], 7 15:25:00 CMP, serum or plasma 2016 017 [facility], [address], [address], [place], [address], 7 15:24:59 urinal ysis, comple te 2016 017 [facility], [address], [address], [place], [address], 7 14:22:51 CBC w/ auto diff 2016 017 [facility], [address], [facility], [place], [address], 7 14:43:09 CMP, serum or plasma 2014 015 [email or web address] Not available 6 08:24:20 lipid panel, serum 2014 015 abolcun Not available 6 08:24:20 Referral physic al therap ist referr al - Dx: lumbag o with L. sciati ca Evalua te and treat . 2017 018 JACOB Not available 8 09:28:04 nutrit ionist /dieti donya referr al 2016 017 [email or web address] Not available 7 12:12:50 nutrit ionist /nigel naqvi referr al 2014 015 awychowski Not available 5 10:14:58 Procedures None record ed. Surgeries None record ed. Imaging electr ocardi ogram 2014 015 awscar In-Office Order, Internal Use Only DO Not Attach Compendium DO Not Attach Compendium, Do Not Delete/merge, [id number] 5 22:20:20 Medication Orders Medrol (Derek) 4 mg tablet s in a dose pack 2017 018 INTERFACE [id number], [address] [place], [address], 8 13:40:31 ibupro fen 800 mg tablet 2017 018 INTERFACE [id number], [address] [place], [address], 8 13:40:58 cyclob enzapr ine 10 mg tablet 2017 018 INTERFACE [id number], [address] [place], [address], 8 13:41:49 Vitami n D3 25 mcg (1,000 unit) capsul e 2014 [address] [id number], [address] [place], [address], 6 11:02:35 Patient Targets Encounter Date Encounter Id Patient Goals Patient Target Last Modified By Organization Details Last Modified Time 04/21/2015 [id number] emt intermediate goal of Excess Body Weight Loss % 5 Not available Not available Not available Pt advised and agrees to work on self-monitoring behaviors; begin an appropriate diet for weight loss (such as a low carbohydrate diet), to do moderate exercise (such as walking) for approximately 150 minutes per week; and to identify desirable and timely rewards that will reinforce achievement of specific weight loss goals. rodger Not available 04/21/2015 10:14:58 09/26/2016 [id number] emt intermediate goal of Excess Body Weight Loss % 5 Not available Not available Not available Pt advised and agrees to work on self-monitoring behaviors; begin an appropriate diet for weight loss (such as a low carbohydrate diet), to do moderate exercise (such as walking) for approximately 150 minutes per week; and to identify desirable and timely rewards that will reinforce achievement of specific weight loss goals. rodger Not available 09/26/2016 11:23:31 Patient Instructions Encounter Date Encounter Id Patient Instructions Last Modified By Organization Details Last Modified Time 02/03/2015 [id number] [facility] / Maxillofacial surgery. ? ? ? Dr. tovar ? ? ?[address] [place], [place]. ? ? ?[phone]. ? ? ?Karri is the contactI have reviewed the note and agree with the assessment and plan of care. rodger Not available 02/05/2015 22:20:20 04/21/2015 [id number] starting a weigh t loss plan: care instructions awscar Not available 04/21/2015 10:14:58 Nutrition Referral and Weight Management Follow-up Information [email or web address] Not available 04/21/2015 10:14:58 09/26/2016 [id number] starting a weigh t loss plan: care instructions [email or web address] Not available 09/26/2016 11:33:49 Nutrition Referral and Weight Management Follow-up Information [email or web address] Not available 09/26/2016 16:40:27 04/21/2018 [id number] sciatica: care instructions Not available 04/21/2018 13:38:23 back care and preventing injuries: care instructions Not available 04/21/2018 13:38:23 Chart reviewed, agree with above assessment and plan. 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 sciatica Evaluate and treat . Referring Physician: Elisa Noonan, Internal Medicine, Encounter Date: 04/21/2018 Results Created Date Observation Date Name Description Value Unit Range Abnormal Flag Note LastModifiedBy Organization Detail LastModifiedTime 02/04/20 15 02/03/2015 elect roclivia diogr am Rate & Rhythm Not Available In-Off ice Order Internal Use Only DO Not Attach Compendium DO Not Attach Compendium, Do Not Delete/merge, [id number] 02/03/2015 09:28:46 02/04/20 15 02/03/2015 elect rocar diogr am QRS Not Available In-Office Order Internal Use Only DO Not Attach Compendium DO Not Attach Compendium, Do Not Delete/merge, [id number] 02/03/2015 09:28:46 02/04/2002/03/2015 elect rocar diogr am TX Interval Not Available In-Off ice Order Internal Use Only DO Not Attach Compendium DO Not Attach Compendium, Do Not Delete/merge, [id number] 02/03/2015 09:28:46 02/04/20 15 02/03/2015 elect rocar diogr am QRS Duration Not Available In-Of fice Order Internal Use Only DO Not Attach Compendium DO Not Attach Compendium, Do Not Delete/merge, [id number] 02/03/2015 09:28:46 06/0502/03/2015 justina fitzpatrick diogr am QT Interval Not Available In-Off ice Order Internal Use Only DO Not Attach Compendium DO Not Attach Compendium, Do Not Delete/merge, [id number] 02/03/2015 09:28:46 01/05/2001/04/2015 justina fitzpatrick diogr am Rate & Rhythm Sinus rhythm 80 Not Available In-Office Order Internal Use Only DO Not Attach Compendium DO Not Attach Compendium, Do Not Delete/merge, 01/04/2015 09:27:26 01/05/2001/04/2015 justina fitzpatrick diogr am TX Interval 152ms Not Available In-Off ice Order Internal Use Only DO Not Attach Compendium DO Not Attach Compendium, Do Not Delete/merge, 01/04/2015 09:27:26 01/05/2001/04/2015 justina fitzpatrick diogr am QRS Duration 101ms Not Available In-Of fice Order Internal Use Only DO Not Attach Compendium DO Not Attach Compendium, Do Not Delete/merge, 01/04/2015 09:27:26 01/05/2001/04/2015 justina fitzpatrick diogr am QT Interval 373ms Not Available In-Off ice Order Internal Use Only DO Not Attach Compendium DO Not Attach Compendium, Do Not Delete/merge, 01/04/2015 09:27:26 01/05/2001/04/2015 CBC w/ auto diff WBC 8.8 K/mm3 (4.0-1 1.0) Not Available [facility] (Centralized Electronic Ordering - All Locations) Patient Can Go To The Location Of Their Choice, 01/04/2015 14:18:13 01/05/2001/04/2015 CBC w/ auto diff RBC 5.17 M/mm3 (4.70- 6.10) Not Available [facility] (Centralized Electronic Ordering - All Locations) Patient Can Go To The Location Of Their Choice, 01/04/2015 14:18:13 01/05/2001/04/2015 CBC w/ auto diff HGB 15.3 gm/dL (14.0- 18.0) Not Available [facility] (Centralized Electronic Ordering - All Locations) Patient Can Go To The Location Of Their Choice, 01/04/2015 14:18:13 01/05/2001/04/2015 CBC w/ auto diff HCT 44.8 % (42.0- 52.0) Not Available [facility] (Centralized Electronic Ordering - All Locations) Patient Can Go To The Location Of Their Choice, 01/04/2015 14:18:13 01/05/2001/04/2015 CBC w/ auto diff MCV 86.7 fL (80.0- 94.0) Not Available [facility] (Centralized Electronic Ordering - All Locations) Patient Can Go To The Location Of Their Choice, 01/04/2015 14:18:13 01/05/2001/04/2015 CBC w/ auto diff MCH 29.6 pg (27.0- 34.0) Not Available [facility] (Centralized Electronic Ordering - All Locations) Patient Can Go To The Location Of Their Choice, 01/04/2015 14:18:01/05/2001/04/2015 CBC w/ auto diff MCHC 34.2 % (33.0- 37.0) Not Available [facility] (Centralized Electronic Ordering - All Locations) Patient Can Go To The Location Of Their Choice, 01/04/2015 14:18:01/05/2001/04/2015 CBC w/ auto diff plt 305 K/mm3 (150-4 60) Not Available [facility] (Centralized Electronic Ordering - All Locations) Patient Can Go To The Location Of Their Choice, 01/04/2015 14:18:01/05/2001/04/2015 CBC w/ auto diff RDW-SD 39.6 fL (<47.0 ) Not Available [facility] (Centralized Electronic Ordering - All Locations) Patient Can Go To The Location Of Their Choice, 01/04/2015 14:18:01/05/2001/04/2015 CBC w/ auto diff MPV 9.2 fL (9.4-1 2.4) low Not Available [facility] (Centralized Electronic Ordering - All Locations) Patient Can Go To The Location Of Their Choice, 01/04/2015 14:18:01/05/2001/04/2015 CBC w/ auto diff automated NRBC 0.0 #/100 _WBC' s Not Available [facility] (Centralized Electronic Ordering - All Locations) Patient Can Go To The Location Of Their Choice, 01/04/2015 14:18:01/05/2001/04/2015 CBC w/ auto diff abs. NRBC 0.0 K/mm3 Not Available [facility] (Centralized Electronic Ordering - All Locations) Patient Can Go To The Location Of Their Choice, 01/04/2015 14:18:01/05/2001/04/2015 CBC w/ auto diff neut # 5.9 K/mm3 (1.3-7 .0) Not Available [facility] (Centralized Electronic Ordering - All Locations) Patient Can Go To The Location Of Their Choice, 01/04/2015 14:18:01/05/2001/04/2015 CBC w/ auto diff lymph # 1.8 K/mm3 (0.8-3 .1) Not Available [facility] (Centralized Electronic Ordering - All Locations) Patient Can Go To The Location Of Their Choice, 01/04/2015 14:18:01/05/2001/04/2015 CBC w/ auto diff mono# 0.8 K/mm3 (0.4-1 .3) Not Available [facility] (Centralized Electronic Ordering - All Locations) Patient Can Go To The Location Of Their Choice, 01/04/2015 14:18:01/05/2001/04/2015 CBC w/ auto diff eo # 0.2 K/mm3 (0.0-0 .4) Not Available [facility] (Centralized Electronic Ordering - All Locations) Patient Can Go To The Location Of Their Choice, 01/04/2015 14:18:01/05/2001/04/2015 CBC w/ auto diff baso # 0.0 K/mm3 (0.0-0 .1) Not Available [facility] (Centralized Electronic Ordering - All Locations) Patient Can Go To The Location Of Their Choice, 01/04/2015 14:18:01/05/2001/04/2015 CBC w/ auto diff abs. imm gran 0.0 K/mm3 Not Available [facility] (Centralized Electronic Ordering - All Locations) Patient Can Go To The Location Of Their Choice, 01/04/2015 14:18:01/05/2001/04/2015 CBC w/ auto diff neut 67.6 % (44-76 ) Not Available [facility] (Centralized Electronic Ordering - All Locations) Patient Can Go To The Location Of Their Choice, 01/04/2015 14:18:01/05/2001/04/2015 CBC w/ auto diff lymph 20.0 % (15-43 ) Not Available [facility] (Centralized Electronic Ordering - All Locations) Patient Can Go To The Location Of Their Choice, 01/04/2015 14:18:01/05/2001/04/2015 CBC w/ auto diff monocyte 9.1 % (4.5-1 0.5) Not Available [facility] (Centralized Electronic Ordering - All Locations) Patient Can Go To The Location Of Their Choice, 01/04/2015 14:18:01/05/2001/04/2015 CBC w/ auto diff eo 2.7 % (0-6) Not Available [facility] (Centralized Electronic Ordering - All Locations) Patient Can Go To The Location Of Their Choice, 01/04/2015 14:18:13 01/05/2001/04/2015 CBC w/ auto diff baso 0.3 % (0-2) Not Available [facility] (Centralized Electronic Ordering - All Locations) Patient Can Go To The Location Of Their Choice, 01/04/2015 14:18:01/05/2001/04/2015 CBC w/ auto diff imm gran 0.3 % (0.0-0 .6) Not Available [facility] (Centralized Electronic Ordering - All Locations) Patient Can Go To The Location Of Their Choice, 01/04/2015 14:18:01/05/2001/04/2015 BMP, serum or plasm a glucose 108 mg/dL (70-99 ) high PATIE NT NOT FASTI NG Not Available [facility] (Centralized Electronic Ordering - All Locations) Patient Can Go To The Location Of Their Choice, 01/04/2015 15:46:16 01/05/2001/04/2015 BMP, serum or plasm a BUN 16 mg/dL (6-20) Not Available [facility] (Centralized Electronic Ordering - All Locations) Patient Can Go To The Location Of Their Choice, 01/04/2015 15:46:16 01/05/2001/04/2015 BMP, serum or plasm a creatinine 0.8 mg/dL (0.7-1 .2) Not Available [facility] (Centralized Electronic Ordering - All Locations) Patient Can Go To The Location Of Their Choice, 01/04/2015 15:46:16 01/05/2001/04/2015 BMP, serum or plasm a sodium 139 mmol/ L (133-1 45) Not Available [facility] (Centralized Electronic Ordering - All Locations) Patient Can Go To The Location Of Their Choice, 01/04/2015 15:46:16 01/05/2001/04/2015 BMP, serum or plasm a potassium 4.2 mmol/ L (3.6-5 .2) Not Available [facility] (Centralized Electronic Ordering - All Locations) Patient Can Go To The Location Of Their Choice, 01/04/2015 15:46:16 01/05/2001/04/2015 BMP, serum or plasm a chloride 100 mmol/ L (98-10 7) Not Available [facility] (Centralized Electronic Ordering - All Locations) Patient Can Go To The Location Of Their Choice, 01/04/2015 15:46:16 01/05/2001/04/2015 BMP, serum or plasm a bicarbonate 25 mmol/ L (22-29 ) Not Available [facility] (Centralized Electronic Ordering - All Locations) Patient Can Go To The Location Of Their Choice, 01/04/2015 15:46:16 01/05/2001/04/2015 BMP, serum or plasm a anion gap 14 (4-17) Not Available [facility] (Centralized Electronic Ordering - All Locations) Patient Can Go To The Location Of Their Choice, 01/04/2015 15:46:16 01/05/2001/04/2015 BMP, serum or plasm a calcium 9.7 mg/dL (8.6-1 0.5) Not Available [facility] (Centralized Electronic Ordering - All Locations) Patient Can Go To The Location Of Their Choice, 01/04/2015 15:46:16 01/05/2001/04/2015 BMP, serum or plasm a est GFR non >60 mL/mi n/1.7 3_M2 THE MDRD STUDY 'S ESTIM ATED GFR EQUAT ION HAS NOT BEEN VALID ATED IN CHILD MANDI (<18 YRS), PREGN ANT WOMEN , THE ELDER LY (AGE >70 YRS), RACIA L OR ETHNI C SUBGR OUPS OTHER THAN CAUCA SIANS AND AFRIC AN AMERI CANS. Not Available [facility] (Centralized Electronic Ordering - All Locations) Patient Can Go To The Location Of Their Choice, 01/04/2015 15:46:16 01/05/2001/04/2015 BMP, serum or plasm a est GFR >60 mL/mi n/1.7 3_M2 THE MDRD STUDY 'S ESTIM ATED GFR EQUAT ION HAS NOT BEEN VALID ATED IN CHILD MANDI (<18 YRS), PREGN ANT WOMEN , THE ELDER LY (AGE >70 YRS), RACIA L OR ETHNI C SUBGR OUPS OTHER THAN CAUCA SIANS AND AFRIC AN AMERI CANS. Not Available [facility] (Centralized Electronic Ordering - All Locations) Patient Can Go To The Location Of Their Choice, 01/04/2015 15:46:16 09/30/1909/30/2016 urina lysis , compl ete appear/color YELLO W CLEAR Not Available [facility] (Centralized Electronic Ordering - All Locations) Patient Can Go To The Location Of Their Choice, 09/30/2016 14:22:51 09/30/1909/30/2016 urina lysis , compl ete sp. gravity 1.029 (1.002 -1.030 ) Not Available [facility] (Centralized Electronic Ordering - All Locations) Patient Can Go To The Location Of Their Choice, 09/30/2016 14:22:51 09/30/1909/30/2016 urina lysis , compl ete urine pH 6.0 (4.0-8 .0) Not Available [facility] (Centralized Electronic Ordering - All Locations) Patient Can Go To The Location Of Their Choice, 09/30/2016 14:22:51 09/30/1909/30/2016 urina lysis , compl ete urine albumin NEGATI VE (neg) Not Available [facility] (Centralized Electronic Ordering - All Locations) Patient Can Go To The Location Of Their Choice, 09/30/2016 14:22:51 09/30/1909/30/2016 urina lysis , compl ete urine glucose NEGATI VE (neg) Not Available [facility] (Centralized Electronic Ordering - All Locations) Patient Can Go To The Location Of Their Choice, 09/30/2016 14:22:51 09/30/1909/30/2016 urina lysis , compl ete urine ketones NEGATI VE (neg) Not Available [facility] (Centralized Electronic Ordering - All Locations) Patient Can Go To The Location Of Their Choice, 09/30/2016 14:22:51 09/30/1909/30/2016 urina lysis , compl ete urine bilirubin NEGATI VE (neg) Not Available [facility] (Centralized Electronic Ordering - All Locations) Patient Can Go To The Location Of Their Choice, 09/30/2016 14:22:51 09/30/1909/30/2016 urina lysis , compl ete urine hemoglobn 1+ (neg) abnormal Not Available [facility] ([facility] Ordering - All Locations) Patient Can Go To The Location Of Their Choice, 09/30/2016 14:22:51 09/30/1909/30/2016 urina lysis , compl ete urine nitrite NEGATI VE (neg) Not Available [facility] (Centralized Electronic Ordering - All Locations) Patient Can Go To The Location Of Their Choice, 09/30/2016 14:22:51 09/30/1909/30/2016 urina lysis , compl ete urine leukocyte NEGATI VE (neg) Not Available [facility] (Centralized Electronic Ordering - All Locations) Patient Can Go To The Location Of Their Choice, 09/30/2016 14:22:51 09/30/1909/30/2016 urina lysis , compl ete urobilinogen NORMAL mg/dL (norm) Not Available [facility] ([facility] - All Locations) Patient Can Go To The Location Of Their Choice, 09/30/2016 14:22:51 09/30/1909/30/2016 urina lysis , compl ete urine WBC's <1 /hpf (0-5) Not Available [facility] ([facility] Ordering - All Locations) Patient Can Go To The Location Of Their Choice, 09/30/2016 14:22:51 09/30/1909/30/2016 urina lysis , compl ete urine RBC's <1 /hpf (<3) Not Available [facility] ([facility] Ordering - All Locations) Patient Can Go To The Location Of Their Choice, 09/30/2016 14:22:51 09/30/1909/30/2016 urina lysis , compl ete mucus SLIGHT /lpf Not Available [facility] (Centralized Electronic Ordering - All Locations) Patient Can Go To The Location Of Their Choice, 09/30/2016 14:22:51 09/30/1909/30/2016 urina lysis , compl ete squamous epith <1 /hpf Not Available [facility] ([facility] Ordering - All Locations) Patient Can Go To The Location Of Their Choice, 09/30/2016 14:22:51 09/30/1909/30/2016 CBC w/ auto diff WBC 8.5 K/mm3 (4.0-1 1.0) Not Available [facility] (Centralized Electronic Ordering - All Locations) Patient Can Go To The Location Of Their Choice, 09/30/2016 14:43:08 09/30/1909/30/2016 CBC w/ auto diff RBC 5.35 M/mm3 (4.70- 6.10) Not Available [facility] (Centralized Electronic Ordering - All Locations) Patient Can Go To The Location Of Their Choice, 09/30/2016 14:43:08 09/30/1909/30/2016 CBC w/ auto diff HGB 15.4 gm/dL (14.0- 18.0) Not Available [facility] (Centralized Electronic Ordering - All Locations) Patient Can Go To The Location Of Their Choice, 09/30/2016 14:43:08 09/30/1909/30/2016 CBC w/ auto diff HCT 46.1 % (42.0- 52.0) Not Available [facility] (Centralized Electronic Ordering - All Locations) Patient Can Go To The Location Of Their Choice, 09/30/2016 14:43:08 09/30/1909/30/2016 CBC w/ auto diff MCV 86.2 fL (80.0- 94.0) Not Available [facility] (Centralized Electronic Ordering - All Locations) Patient Can Go To The Location Of Their Choice, 09/30/2016 14:43:09/30/1909/30/2016 CBC w/ auto diff MCH 28.8 pg (27.0- 34.0) Not Available [facility] (Centralized Electronic Ordering - All Locations) Patient Can Go To The Location Of Their Choice, 09/30/2016 14:43:09/30/1909/30/2016 CBC w/ auto diff MCHC 33.4 g/dL (33.0- 37.0) Not Available [facility] (Centralized Electronic Ordering - All Locations) Patient Can Go To The Location Of Their Choice, 09/30/2016 14:43:09/30/19 17 09/30/2016 CBC w/ auto diff plt 301 K/mm3 (150-4 60) Not Available [facility] (Centralized Electronic Ordering - All Locations) Patient Can Go To The Location Of Their Choice, 09/30/2016 14:43:09/30/19 17 09/30/2016 CBC w/ auto diff RDW-SD 39.9 fL (<47.0 ) Not Available [facility] (Centralized Electronic Ordering - All Locations) Patient Can Go To The Location Of Their Choice, 09/30/2016 14:43:09/30/1909/30/2016 CBC w/ auto diff MPV 9.4 fL (9.4-1 2.4) Not Available [facility] (Centralized Electronic Ordering - All Locations) Patient Can Go To The Location Of Their Choice, 09/30/2016 14:43:09/30/1909/30/2016 CBC w/ auto diff automated NRBC 0.0 #/100 _WBC' s Not Available [facility] (Centralized Electronic Ordering - All Locations) Patient Can Go To The Location Of Their Choice, 09/30/2016 14:43:09/30/1909/30/2016 CBC w/ auto diff abs. NRBC 0.0 K/mm3 Not Available [facility] (Centralized Electronic Ordering - All Locations) Patient Can Go To The Location Of Their Choice, 09/30/2016 14:43:09/30/1909/30/2016 TSH, serum or plasm a TSH 1.40 mIU/m L (0.40- 4.00) Not Available [facility] (Centralized Electronic Ordering - All Locations) Patient Can Go To The Location Of Their Choice, 09/30/2016 15:04:22 09/30/1909/30/2016 CMP, serum or plasm a glucose 102 mg/dL (70-99 ) high Not Available [facility] (Centralized Electronic Ordering - All Locations) Patient Can Go To The Location Of Their Choice, 09/30/2016 15:24:59 09/30/1909/30/2016 CMP, serum or plasm a BUN 16 mg/dL (6-20) Not Available [facility] (Centralized Electronic Ordering - All Locations) Patient Can Go To The Location Of Their Choice, 09/30/2016 15:24:59 09/30/1909/30/2016 CMP, serum or plasm a creatinine 0.9 mg/dL (0.7-1 .2) Not Available [facility] (Centralized Electronic Ordering - All Locations) Patient Can Go To The Location Of Their Choice, 09/30/2016 15:24:59 09/30/1909/30/2016 CMP, serum or plasm a sodium 140 mmol/ L (133-1 45) Not Available [facility] (Centralized Electronic Ordering - All Locations) Patient Can Go To The Location Of Their Choice, 09/30/2016 15:24:59 09/30/1909/30/2016 CMP, serum or plasm a potassium 4.3 mmol/ L (3.6-5 .2) Not Available [facility] (Centralized Electronic Ordering - All Locations) Patient Can Go To The Location Of Their Choice, 09/30/2016 15:24:59 09/30/1909/30/2016 CMP, serum or plasm a chloride 101 mmol/ L (98-10 7) Not Available [facility] (Centralized Electronic Ordering - All Locations) Patient Can Go To The Location Of Their Choice, 09/30/2016 15:24:59 09/30/1909/30/2016 CMP, serum or plasm a bicarbonate 25 mmol/ L (22-29 ) Not Available [facility] (Centralized Electronic Ordering - All Locations) Patient Can Go To The Location Of Their Choice, 09/30/2016 15:24:59 09/30/1909/30/2016 CMP, serum or plasm a anion gap 14 (4-17) Not Available [facility] (Centralized Electronic Ordering - All Locations) Patient Can Go To The Location Of Their Choice, 09/30/2016 15:24:59 09/30/1909/30/2016 CMP, serum or plasm a albumin 4.4 gm/dL (3.4-4 .8) Not Available [facility] (Centralized Electronic Ordering - All Locations) Patient Can Go To The Location Of Their Choice, 09/30/2016 15:24:59 09/30/1909/30/2016 CMP, serum or plasm a calcium 9.4 mg/dL (8.6-1 0.5) Not Available [facility] (Centralized Electronic Ordering - All Locations) Patient Can Go To The Location Of Their Choice, 09/30/2016 15:24:59 09/30/1909/30/2016 CMP, serum or plasm a bilirubin,to jitendra 0.4 mg/dL (0-1.2 ) Not Available [facility] (Centralized Electronic Ordering - All Locations) Patient Can Go To The Location Of Their Choice, 09/30/2016 15:24:59 09/30/1909/30/2016 CMP, serum or plasm a total protein 7.1 gm/dL (6.2-8 .2) Not Available [facility] (Centralized Electronic Ordering - All Locations) Patient Can Go To The Location Of Their Choice, 09/30/2016 15:24:59 09/30/1909/30/2016 CMP, serum or plasm a Ag ratio 1.6 Not Available [facility] (Centralized Electronic Ordering - All Locations) Patient Can Go To The Location Of Their Choice, 09/30/2016 15:24:59 09/30/1909/30/2016 CMP, serum or plasm a AST 14 U/L (0-38) Not Available [facility] (Centralized Electronic Ordering - All Locations) Patient Can Go To The Location Of Their Choice, 09/30/2016 15:24:59 09/30/1909/30/2016 CMP, serum or plasm a alk phos 73 U/L (40-12 9) Not Available [facility] (Centralized Electronic Ordering - All Locations) Patient Can Go To The Location Of Their Choice, 09/30/2016 15:24:59 09/30/1909/30/2016 CMP, serum or plasm a ALT 12 U/L (0-41) Not Available [facility] (Centralized Electronic Ordering - All Locations) Patient Can Go To The Location Of Their Choice, 09/30/2016 15:24:59 09/30/1909/30/2016 CMP, serum or plasm a est GFR non 110 mL/mi n/1.7 3_M2 The CKD-E PI creat inine equat ion has not been valid ated in child mandi (<18 years ), pregn ant women , in some racia l or ethni c subgr oups other than Cauca sians and Afric an Ameri cans. Not Available [facility] (Centralized Electronic Ordering - All Locations) Patient Can Go To The Location Of Their Choice, 09/30/2016 15:24:59 09/30/1909/30/2016 CMP, serum or plasm a est GFR 128 mL/mi n/1.7 3_M2 The CKD-E PI creat inine equat ion has not been valid ated in child mandi (<18 years ), pregn ant women , in some racia l or ethni c subgr oups other than Cauca sians and Afric an Ameri cans. Not Available [facility] (Centralized Electronic Ordering - All Locations) Patient Can Go To The Location Of Their Choice, 09/30/2016 15:24:59 09/30/1909/30/2016 lipid panel , serum cholesterol, total 164 mg/dL (<200) Not Available [facility] ([facility] Ordering - All Locations) Patient Can Go To The Location Of Their Choice, 09/30/2016 15:25:00 09/30/1909/30/2016 lipid panel , serum triglyceride 91 mg/dL (<150) Not Available [facility] ([facility] Ordering - All Locations) Patient Can Go To The Location Of Their Choice, 09/30/2016 15:25:00 09/30/1909/30/2016 lipid panel , serum HDL chol 45 mg/dL (>39) Not Available [facility] (Centralized Electronic Ordering - All Locations) Patient Can Go To The Location Of Their Choice, 09/30/2016 15:25:00 09/30/1909/30/2016 lipid panel , serum LDL cholesterol, calculated 101 mg/dL (0-130 ) Not Available [facility] (Centralized Electronic Ordering - All Locations) Patient Can Go To The Location Of Their Choice, [id number] 09/30/2016 15:25:00 09/30/19 17 09/30/2016 lipid panel , serum non HDL cholesterol (calc) 119 mg/dL (<160) Not Available [facility] (Centralized Electronic Ordering - All Locations) Patient Can Go To The Location Of Their Choice, [id number] 09/30/2016 15:25:00 09/30/19 17 09/30/2016 HIV 1+2 AB + HIV 1 p24 Ag, quali tativ e immun oassa y, serum result 4TH gen HIV Ab-Ag NEGAT RODRIGO NEGAT RODRIGO FOR ANTIB ODIES TO HIV 1 AND HIV 2 AND P24 ANTIG EN. REFER ENCE RANGE : NEGAT RODRIGO ADDIT IONAL NOTE: WRITT EN PATIE NT AUTHO RIZAT ION IS REQUI RED FOR EACH SEPAR ATE RELEA SE OF THIS TEST RESUL T. Not Available [facility] (Centralized Electronic Ordering - All Locations) Patient Can Go To The Location Of Their Choice, [id number] 09/30/2016 16:23:35 09/30/19 17 10/01/2016 vitam in D, 25-hy droxy , total , serum 25OH vitamin D 15.4 NG/mL (20-50 ) low SERUM 25OHD : 12 TO 19 NG/ML : AT RISK OF VITAM IN D INADE QUACY . Refer ence: [facility] Data Brief : No.59 October: Vitam in D Statu s: Unite d State s: 2000- 2005 Not Available [facility] (Centralized Electronic Ordering - All Locations) Patient Can Go To The Location Of Their Choice, [id number] 10/01/2016 01:42:57 09/30/1910/01/2016 HBsAg (hepa titis B surfa ce Ag), serum hep. B surf. Ag NEGAT RODRIGO REFER ENCE RANGE : NEGAT RODRIGO Not Available [facility] (Centralized Electronic Ordering - All Locations) Patient Can Go To The Location Of Their Choice, [id number] 10/01/2016 12:33:47 09/30/19 17 10/01/2016 CT, DNA, qual, PCR, unspe cifie d speci men urine chlamydia amp probe NEGAT RODRIGO No Chlam ydia Trach omati s RNA detec genna in this patie nt's sampl e (REFE RENCE RANGE /NORM AL VALUE : NOT DETEC GENNA) Not Available [facility] (Centralized Electronic Ordering - All Locations) Patient Can Go To The Location Of Their Choice, [id number] 10/01/2016 13:14:07 09/30/19 17 10/01/2016 NG DNA, PCR, urine urine GC amp probe NEGAT RODRIGO No Neiss eria Gonor rhoea e RNA detec genna in this patie nt's sampl e (REFE RENCE RANGE /NORM AL VALUE : NOT DETEC GENNA) NOTE: This test uses trans cript ion-m ediat ed ampli ficat ion metho d to detec t rRNA from C.Tra choma tis and N.Josep orrho eae. A negat rodrigo resul t does not precl ude infec tion. In the case of a negat rodrigo urine resul t, testi ng of an endoc ervic al(fe male) or ureth ral(m elijah) speci men is recom arley d if there is high clini mateo suspi cion of infec tion. The perfo rmanc e samson cteri stics of this test have not been evalu ated in child mandi. The Aptim a Combo 2 assay is not inten ded for the evalu ation of suspe cted sexua l abuse or for other medic o-leg al indic ation s. The order ing provi licha shoul d asses s if the patie nt had conse nsual sex witho ut risk of sexua l abuse . [facility] if neede d. Conta ct phone numbe r [phone]. Thera peuti c failu re or succe ss canno t be deter mined with the Aptim a Combo 2 assay since nucle ic acid may persi st follo wing appro priat e antim icrob ial thera py. The Cent[facility] rs [facility] Disea se Contr ol and Preve ntion ([facility]) recom mends confi rmato ry retes ting using cultu re or a diffe rent nucle ic acid ampli ficat ion test when posit rodrigo resul ts occur , if indic ated. Not Available [facility] (Centralized Electronic Ordering - All Locations) Patient Can Go To The Location Of Their Choice, [id number] 10/01/2016 13:14:08 09/30/19 17 10/01/2016 RPR (rapi d plasm a reagi n), titer , serum syphilis screen by roger NONREA CTIVE Not Available [facility] (Centralized Electronic Ordering - All Locations) Patient Can Go To The Location Of Their Choice, 10/01/2016 13:44:32 09/30/19 17 10/01/2016 RPR (rapi d plasm a reagi n), titer , serum RPR titer result NOT INDICA GENNA Not Available [facility] (Centralized Electronic Ordering - All Locations) Patient Can Go To The Location Of Their Choice, 10/01/2016 13:44:32 09/30/19 17 10/01/2016 RPR (rapi d plasm a reagi n), titer , serum tppa result NOT INDICA GENNA Not Available [facility] (Centralized Electronic Ordering - All Locations) Patient Can Go To The Location Of Their Choice, [id number] 10/01/2016 13:44:32 09/30/19 17 10/01/2016 RPR (rapi d plasm a reagi n), titer , serum syphilis interpretati on Indic ative of the absen ce of infec tion with Trepo nemal palli dum. Test may be negat rodrigo in cases of incub ating or early prima ry syphi lis. Consi licha repea t testi ng in sever al weeks if clini mateo suspi cion is high. Not Available [facility] (Centralized Electronic Ordering - All Locations) Patient Can Go To The Location Of Their Choice, [id number] 10/01/2016 13:44:32 09/30/19 17 10/01/2016 hepat itis C virus Ab, serum anti-hepatit is C NEGAT RODRIGO REFER ENCE RANGE : NEGAT RODRIGO Not Available [facility] (Centralized Electronic Ordering - All Locations) Patient Can Go To The Location Of Their Choice, [id number] 10/01/2016 13:49:21 01/05/20 15 elect amari diogr am No observ ation record ed. [email or web address] Not Available 2014 09:51:19 02/04/20 15 elect amari khanna am No observ ation record ed. rodger Not Available 04/21 10:02:55 Result Notes None recorded. Problems Name Problem SNOMED Code Status Onset Date Resolution Date Notes Provider Name and Address Organization Details Recorded Time Administ ration of diphther ia, pertussi s, and tetanus vaccine Completed 201304/11/2014 RECORDED 12/28/19 14 3:01PM BY ANTOINETTE ALARCON MA, ANNOTATI ON/ADDEN DUM Not Available [facility] 4 05:27:12 Impacted tooth 802026342 Completed 04/21/2015 Peter Hayward MD [address] [facility] [address], [place], [address] , [facility] 5 09:56:33 Body mass index 40+ - severely obese 266267691 Active Peter Hayward MD [address] [facility] [address], [place], [address] , [facility] 5 10:14:58 Vitamin D deficien cy 89571522 Active Peter Hayward MD [address] [facility] [address], [place], [address] , [facility] 5 10:14:58 Viral syndrome 665847412 Completed 09/26/2016 Peter Hayward MD [address] [facility] [address], [place], [address] , [facility] 7 11:13:37 Lumbago with sciatica 978635966 Active 2017 Elisa Noonan PA-C [address] [facility] [address], [place], [address] , [facility] 8 13:38:11 Depressi ve disorder 95165937 Completed 201309/26/2016 Peter Hayward MD [address] [facility] [address], [place], [address] , [facility] 7 11:13:33 Tobacco user 593793671 Completed 201304/21/2015 RECORDED 12/28/19 14 3:00PM BY ANTOINETTE ALARCON MA, SALBADOR ON/ADDEN DUM Antoinette nguyen [facility] 5 09:41:10 Headache 14732950 Active 2013 Peter Hayward MD [address] [address], [place], [address] , [facility] 7 11:13:28 Migraine 69704841 Active 2013 Peter Hayward MD [address] [address], [place], [address] , [facility] 7 11:13:45 Multiple joint pain 00110405 Completed 201304/21/2015 IMPRESSI ON: HAS SOME RISK FOR VITD DEFICIEN CY. IF NL AND SX'S PERSIST, PT ADVISED TO SCHEDULE F/U.; RECORDED 12/28/19 14 3:05PM BY PETER Cuellar MD, OFFICE VISIT Peter Hayward MD [address] [address], [place], [address] , [facility] 5 09:56:33 Morbid obesity 260898134 Completed 201309/26/2016 IMPRESSI ON: POTENTIA L ASSISTED HEALTH CONSEQUE NCES DISCUSSE D AND UNDERSTO OD. HEALTHIE R DIET AND EXERCISE HABITS ADVISED. ; RECORDED 12/28/19 14 3:05PM BY PETER Cuellar MD, OFFICE VISIT Peter Hayward MD [address] [address], [place], [address] , [facility] 7 11:13:20 Administ ration of diphther ia, pertussi s, and tetanus vaccine Completed 201303/15/2014 RECORDED 12/28/19 14 3:01PM BY ANTOINETTE ALARCON MA, ANNOTATI ON/ADDEN DUM Not Available [facility] 4 14:15:30 Problem Notes None recorded. Procedures Surgical History Date Name Laterality Status Provider Name and Address Organization Details Recorded Time 5 Unlisted px dentalvlr strux completed Peter Hayward MD [address] [facility] [address], [place], [address], [facility] 03/03/2015 09:26:51 Treatment of ankle fracture [facility] 08:21:25 Imaging Results Imaging Date Name Status LastModified by Organization Details LastModified Time 01/04/2015 electrocardiogram completed Informa tion not available 01/04/2015 09:51:19 02/03/2015 electrocardiogram completed Informa tion not available 04/21/2015 10:02:55 Procedure Notes None recorded. Medical Equipment None Reported. Allergies No known drug allergies Medications Name Sig Start Date Stop Date Status Note LastModified by Organization Details LastModified Time cyclobenzapr ine 10 mg tablet Take 1 tablet every day by oral route for 7 days. active Not Available Not Available No t Available amoxicillin 500 mg capsule active Not Available Not Available Not Available ibuprofen 800 mg tablet Take 1 tablet 3 times a day by oral route for 15 days. active Not Available Not Available No t Available oxycodone-ac etaminophen 5 mg-325 mg tablet active Not Available Not Available Not Available ciprofloxaci n 0.3 % eye drops 04/21 completed Not Available Not Available Not Available methylpredni solone 4 mg tablets in a dose pack Take 1 dose pk by oral route. active Not Available Not Available No t Available Vitamin D3 25 mcg (1,000 unit) capsule Take 1 capsule every day by oral route for 30 days. 2014 active Not Available Not Available Not Avai lable Vitamin D3 50 mcg (2,000 unit) capsule Take 1 capsule every day by oral route for 90 days. 04/21 completed Not Available Not Available Not Available Vitals Date Recorded Body height Body weight Body mass index (BMI) Heart rate Oxygen saturation Oxygen saturation in Arterial blood by Pulse oximetry Body temperature Systolic blood pressure Diastolic blood pressure Provider Name and Address Organization Details Last Updated DateTime 7 162.56 cm 940029. 46 g 43.6 kg/m2 66 /min 98 % 98 % 96.8 [degF] 112 mm[Hg] 80 mm[Hg] Salome Taylor MA [facility] 7 10:55:13 Date Recorded Body height Body mass index (BMI) Body weight Heart rate Oxygen saturation Oxygen saturation in Arterial blood by Pulse oximetry Body temperature Systolic blood pressure Diastolic blood pressure Provider Name and Address Organization Details Last Updated DateTime 8 162.56 cm 36.7 kg/m2 30647.7 7 g 73 /min 97 % 97 % 97.3 [degF] 118 mm[Hg] 72 mm[Hg] Mitchell Santoro [facility] 8 13:12:51 Date Recorded Body height Body weight Body temperature Body mass index (BMI) Oxygen saturation Oxygen saturation in Arterial blood by Pulse oximetry Heart rate Systolic blood pressure Diastolic blood pressure Provider Name and Address Organization Details Last Updated DateTime 5 161.29 cm 424140. 297424 g 98.3 [degF] 45.8 kg/m2 99 % 99 % 88 /min 126 mm[Hg] 81 mm[Hg] Kirsten Hutson [facility] 5 09:00:33 Date Recorded Body weight Oxygen saturation Oxygen saturation in Arterial blood by Pulse oximetry Body height Body mass index (BMI) Body temperature Heart rate Systolic blood pressure Diastolic blood pressure Provider Name and Address Organization Details Last Updated DateTime 5 035219. 0162 g 97 % 97 % 162.56 cm 44.6 kg/m2 98.2 [degF] 83 /min 116 mm[Hg] 78 mm[Hg] Antoinette kaur MA [facility] 5 09:43:01 Date Recorded Body height Oxygen saturation Oxygen saturation in Arterial blood by Pulse oximetry Heart rate Body temperature Body weight Body mass index (BMI) Systolic blood pressure Diastolic blood pressure Provider Name and Address Organization Details Last Updated DateTime 6 162.56 cm 98 % 98 % 78 /min 98.4 [degF] 356835. 49167 g 45.5 kg/m2 118 mm[Hg] 74 mm[Hg] Antoinette kaur MA [facility] 6 11:00:16 Social History Question Answer Notes LastModified by Organizat ion Details LastModified Time Tobacco Smoking Status Former Smoker quit in 2010 Not Available [facility] 07/04/2020 03:36:38 Do You Have An Advance Directive? Yes HCP/ Mom-Sasha [id number] Information not available 07/04/2020 What Is Your Level Of Alcohol Consumption? Occasional [id number] Information not available 07/04/2020 Is Blood Transfusion Acceptable In An Emergency? No [id number] Information not available 07/04/2020 What Is Your Level Of Caffeine Consumption? Moderate 2-3 Servings Of Coffee Daily, No More Soda, No Energy Drinks [id number] Information not available 07/04/2020 How Much Tobacco Do You Chew? None [id number] Information not available 07/04/2020 Are You Currently Employed? Yes [id number] Information not available 07/04/2020 What Type Of Diet Are You Following? REGULAR [id number] Information not available 07/04/2020 Which Illicit Or Recreational Drugs Have You Used? None [id number] Information not available 07/04/2020 What Is Your Occupation? [employer] [id number] Information not available 07/04/2020 Live Alone Or With Others? With Others Parents, Dtr, Brother Information not available 01/04/2015 Do You Take Precautions To Prevent Distracted Driving? Yes Uses Bluetooth Information not available 04/21/2015 How Often Do You Need To Have Someone Help You When You Read Instructions, Pamphlets, Or Other Written Material From Your Doctor Or Pharmacy? Never Information not available 04/21/2015 Have You Served In The ? No abolcun Information not available 09/26/2016 What Was The Date Of Your Most Recent Tobacco Screening? 04/21/2018 [id number] Information not available 07/04/2020 How Many Children Do You Have? 1 Daughter [id number] Information not available 07/04/2020 Do You Use Protection During Sex? Usually [id number] Information not available 07/04/2020 Seat Belts Used Routinely Yes Information not available 04/21/2015 Are You Sexually Active? Yes [id number] Information not available 07/04/2020 Smoke Alarm In Home Yes Information not available 04/21/2015 At What Age Did You Start Smoking Tobacco? 23 [id number] Information not available 07/04/2020 Are You Passively Exposed To Smoke? No Information not available 09/26/2016 How Much Tobacco Do You Smoke? 0.25 PPD [id number] Information not available 07/04/2020 Do You Use Sunscreen Routinely? No [id number] Information not available 07/04/2020 How Many Years Have You Smoked Tobacco? 8 [id number] Information not available 07/04/2020 Sex: Unknown Functional Status Question Answer Note LastModified by Organizat ion Details LastModified Time Are you able to care for yourself? Yes [id number] Information not available 07/04/2020 What is your exercise level? Occasional [id number] Information not available 07/04/2020 Mental Status None recorded. Family History Relationship Description Onset Age of this Age Resolved Age Notes LastModified by Organization Details LastModified Time Mother Migraine awychowski Not availab le 04/21/2015 09:58:20 Mother Cardiac septal defects awychowski Not available 04/21 09:58:20 Mother Glaucoma awychowski Not availab le 09/26/2016 11:14:53 Father Asthma awychowski Not available 04/21/2015 09:58:20 Father Hypertensive disorder awychowski Not available 04/21 09:58:20 Father Kidney disease awychowski Not available 09/26 11:14:25 Maternal Uncle Malignant neoplastic disease awychowski Not available 04/21 09:58:20 Maternal Uncle Alcoholism awychowski Not available 04/02 09:58:20 Maternal Uncle Essential hypertension awychowski Not available 09:58:20 Paternal Uncle Malignant neoplastic disease awychowski Not available 04/21 09:58:20 Paternal Uncle Diabetes mellitus awychowski Not available 04/21 09:58:20 Brother Well adult awychowski Not avai lable 09/26/2016 11:15:18 Daughter Well adult awychowski Not crystal ilisai 09/26/2016 11:15:28 Medical History Condition Response Coronary Artery Disease N Gout N Other N Blood Diseases N Kidney Stones N Hyperthyroidism N Breast Cancer N mrsa exposure N Lung Disease N Hypothyroidism N Depression N COPD N Defects or Inherited Disease N Developmental or Behavioral Disorders N Breast Problem N Anesthesia Complications N Headaches/Migraines N Varicose Veins N Anxiety Disorder N Muscle, Joint, or Bone Problems Y Obesity Y Vision or Eye Problems N Arthritis N Head Injury/Concussion N Infertility N Polyps N Mental Disorder N Congenital Anomalies N Acid Reflux (GERD) N Cancer N Stroke N ADHD N Endometriosis N High Cholesterol N Liver Disease N Headaches N Fibromyalgia N Kidney Disease N Heart Problems N Ear or Hearing Problems N Hospitalizations N Thyroid Problems N GI Problems N Developmental Delay N Acne N Eating Disorder N Skin Problems N Anemia N Constipation N Bladder Problems N Mental Illness N Diabetes N Ovarian Cancer N Bedwetting N Blood Transfusions N Heart Problems/Murmur N Seizures/Epilepsy N Tuberculosis N AIDS/HIV N Congestive Heart Failure (CHF) N Eczema N Abuse/Domestic Violence N Diverticulitis N Asthma N Allergies N Reflux/GERD N Hepatitis N Heart Disease N Pulmonary Embolism N Hypertension N Chicken Pox N Autism Spectrum Disorder (ASD) N Osteoporosis N Immunizations Vaccine Type Date Status Note Provider Nam e and Address Organization Details Recorded Time Tdap 12/27/2013 completed Not Available [facility] 03/15/2014 13:52:59 Past Encounters Encounter ID Performer Location Encounter Start Date Encounter Closed Date Diagnosis/Indication Diagnosis SNOMED-CT Code Diagnosis ICD10 Code Diagnosis Note [id number] [facility] [address] [place] [address] [address] [place] [address] 12/27/2013 00:00:00 [id number] Yuly Amse Main Office [address] [facility] [address] [place] [address] 01/04/2015 09:19:23 01/04/2015 09:53:21 Pre-surgery evaluation [id number] Patient is low cardiac risk for wisdom teeth extraction , EKG normal sinus rhythm, labs pending, no further work-up necessary. Impacted tooth 885783766 Having all 4 wisdom teeth extracted with Dr. De Anda on 01/11/15. Body mass index 40+ - severely obese 829683913 Patient is interested in weight loss. He has been trying to cut back on soda, fast foods and eating oatmeal for breakfast as well as drinking more water but is still eating a good amount of fried foods, meats. Discussed exercise, dietary changes, he would like a [facility] a tax [facility] [id number] Peter Hayward MD Main Office [address] [place] [address] [place] [address] 02/03/2015 08:50:28 02/03/2015 09:48:15 Pre-surgery evaluation 704556891 George is at low cardiopulm onary risk for this procedure, no further testing indicated. His EKG is a variant of normal. Impacted tooth 001291563 [id number] Main Office [address] [place] [address] [place] [address] 04/21/2015 09:23:20 04/21/2015 10:14:30 Adult health examination 266533376 Immunizati on status utd, will screen based on risk factors. Regular dental and ophtho care advised as well as seatbelt and sunscreen use. Distracted driving discussed. Advance directives in place. Body mass index 40+ - severely obese 172692852 Vitamin D deficiency 79226984 Has not started supplement . Will defer reassessme nt until taking supplement regularly. [id number] Florian Tyler MD Main Office [address] [place] [address] [place] [address] 11/10/2015 10:47:41 11/10/2015 11:44:30 Viral syndrome 151574309 B34.9 [id number] Peter Hayward MD Main Office [address] [place] [address] [place] [address] 09/26/2016 10:45:43 09/26/2016 11:34:47 Adult health examination 482098632 Z00.00 Immunizati on status utd, will screen based on risk factors. Regular dental and ophtho care advised as well as seat belt and sunscreen use. Distracted driving discussed. Advance directives in place. Body mass index 40+ - severely obese 262357028 Z68.41 E66.01 Vitamin D deficiency 347 10381 E55.9 Not taking supplement . Will see if needed. Exposure t o sexually transmissible disorder 674907304 Z20.2 Pt asks for screening based on suspicions of his ex . [id number] Peter Hayward MD Main Office [address] [facility]3] [address] [place] [address] 04/21/2018 13:05:36 04/21/2018 13:47:50 Lumbago with sciatica 890105509 M54.40 Tentative f/u in 4 weeks after course of PT. Health Concerns Section Related Observation LastModified by Organization Detai ls LastModified Time None Recorded Concern Status LastModified by Organization Details LastModified Time None Recorded Advance Directives Directive Y: HCP/ Mom-Sasha Payers Encounter Date Sequence Insurance Name Policy Number Policy Garcia Covered Member ID Garcia Member ID Guarantor Name 02/03/2015 1 [facility] [id number] George Bunchado [id number] George Velazquezdonado 04/21/2015 1 [employer] [id number] George Velazquezdonado [id number] George Velazquezdonado 11/10/2015 1 [employer] [id number] George Velazquezdonado [id number] George Velazquezdonado 09/26/2016 1 [employer] [id number] George Velazquezdonado [id number] George Velazquezdonado 04/21/2018 1 [employer] [id number] George Bunchado [id number] George Tenorio Notes Date Note Type Note Provider Name and Address Organization Details Recorded Time 02/03/2015 text/html preop for wisdom tooth extraction. he had pre-op last month but he had to reschedule so it will be more than 30 days since previous. he is able to walk 2 flights of stairs with no CP or SOB Peter Hayward MD [address] [address], [place], [phone], [facility] [place] 02/05/2015 22:20:20 11/10/2015 text/html Upper Respirator y SymptomsReported bypatient.Location:a d; chest Quality:congested;dry cough Severity:moderate Context:non-smoker;sic k contact Modifying Factors:OTC medication Associated Symptoms:no shortness of breath; no wheezing; no feverNotes:Notes symtpoms of congestion, cough, headache. Some improvement with OTC decongestants. Florian Tyler MD [address] [address], [place], [phone], [facility] [place] 11/12/2015 15:27:38 09/26/2016 text/html Generic HPI TemplateReported bypatient.Notes:Feels well, here for physical. Seeing dentist but no ophtho eval in the past. Peter Hayward MD [address] [address], [place], [phone], [facility] [place] 09/26/2016 12:53:40 04/21/2018 text/html 37 year old male c/o low back pain started 5 days ago in the am after waking up. Pt. did not reinjure his back recently, but standing, walking and lifting 20-40 lb bags at wk. Had low back injury last year and was followed for [facility] and underwent rehab through them. He was discharged from that treatment with occasional back soreness in the am.Pt. is taking Advil 400 mg BID for past 3 days with minimal relief. Pain radiates from L. Lower back to gluteal area and posterior thigh worse with standing or walking. No weakness or numbness. Peter Hayward MD [address] [address], [place], [phone], [facility] [place] 04/22/2018 12:43:52
== END 2024-11-10 08:11 | disposition home or self-care (01) ==
PROVIDERS: PCP Nurse Practitioner Family; Visit Provider Nurse Practitioner Family
DX: Z00.00 Encounter for general adult medical examination without abnormal findings (principal); E66.9 Obesity, unspecified; Z68.42 Body mass index [BMI] 45.0-49.9, adult

== ENCOUNTER 2024-11-10 07:31 | Outpatient (REF) | payer OTHER, SELFPAY ==
[2024-11-10 10:17] LABS: MANUAL DIFF FLAG NO
[2024-11-10 10:28] LABS: Basophils Percent Auto 0.3 % (0-2); Eosinophils Absolute Auto 0.1 X10*3/uL (0.0-0.4); Eosinophils Percent Auto 0.9 % (0-4); Hematocrit 41.2 % (42.0-52.0); Hemoglobin 14.4 g/dl (14.0-18.0); Imm Gran Abs Auto 0.02 X10*3/uL (0.00-0.03); Imm Gran Pct Auto 0.3 % (0.0-0.4); Lymphocytes Absolute Auto 1.5 X10*3/uL (1.2-4.9); Lymphocytes Percent Auto 21.5 % (20-40); Mean Corpuscular Hemoglobin 29.9 pg (27.0-33.0); Mean Corpuscular Volume 85.7 fL (80.0-98.0); Monocytes Absolute Auto 0.8 X10*3/uL (0.1-1.2); Monocytes Percent Auto 11.1 % (2-11); Neutrophils Absolute Auto 4.5 x10*3/uL (2.0-8.3); Neutrophils Percent Auto 65.9 % (45-73); Platelet Count 306 X10*3/uL (160-400); Red Blood Count 4.81 X10*6/uL (4.60-5.80); Red Cell Distribution Width 12.8 % (11.0-16.0); White Blood Count 6.9 X10*3/uL (4.8-10.8)
[2024-11-10 10:48] LABS: Alanine Aminotransferase 18 U/L (0-40); Alkaline Phosphatase 63 U/L (39-117); Anion Gap 10 (12-20); Aspartate Amino Transferase 19 U/L (5-37); Bilirubin Total 0.6 mg/dL (0.0-1.0); Blood Urea Nitrogen 15 mg/dL (9-16); Calcium 9.3 mg/dL (8.4-10.2); Carbon Dioxide 26 mmol/L (22-29); Chloride 106 mmol/L (96-108); Cholesterol 166 mg/dL (<200); Estimated Glomerular Filt Rate > 60; Glucose Fasting 102 mg/dL (60-99); HDL Cholesterol 42 mg/dL (>40); LDL Cholesterol Calculated 104 mg/dL (<100); Potassium 3.6 mmol/L (3.3-5.1); Sodium 138 mmol/L (135-145); Total Protein 7.6 g/dL (6.5-8.0); Triglycerides 104 mg/dL (<150)
[2024-11-10 11:01] LABS: Appearance Urine Clear; Color Urine Yellow; Glucose Urine UA Negative (Negative); Leukocyte Esterase Urine Negative (Negative); Nitrite Urine Negative (Negative); PH 6.5 (5.0-9.0); Specific Gravity - Urine >= 1.030 (1.005-1.025); Urine Blood Negative (Negative); Urine Ketones Negative (Negative); Urine Protein Negative (Neg-Trace)
[2024-11-10 11:05] LABS: TSH reflex Free T4 1.54 uIU/mL (0.32-4.0)
== END 2024-11-10 07:32 | disposition home or self-care (01) ==
LOC: HO.HMGCLDS 07:31
PROVIDERS: PCP Nurse Practitioner Family; Visit Provider Nurse Practitioner Family
DX: Z00.00 Encounter for general adult medical examination without abnormal findings (principal); E66.9 Obesity, unspecified
CPT/HCPCS: 36415; 80053; 80061; 81003; 84443; 85025

== ENCOUNTER 2025-01-28 08:01 | Outpatient (AMB) | payer OTHER, SELFPAY ==
--- OUTSIDE RECORDS SUMMARY | 2025-01-28 08:03 | XMS_ITS | Data Portability ---
Author Organization [facility], Main Office Address [address] 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 Reassurance and work note. Follow up as needed. [email or web address] Not available 11/12/2015 15:26:40 Plan of Treatment Reminders Order Date Submit Date Provider Last Modified By Organization Details Last Modified Time Details Appointments None record ed. Lab TSH, serum or plasma 2016 017 [facility], [address], [address] [address], [place], [address], 7 15:04:22 vitami n D, 25-hyd clifton, total, serum 2016 017 [facility], [address], [address] [address], [place], [address], 7 01:42:57 HBsAg (hepat itis B surfac e Ag), serum 2016 017 [facility], [address], [address] [address], [place], [address], 7 12:33:48 CT, DNA, qual, PCR, unspec ified specim en 2016 017 [facility], [address], [place], [address], 7 13:14:07 NG DNA, PCR, urine 2016 017 [facility], [address], [address], [place], [address], 7 13:14:08 RPR (rapid plasma reagin ), titer, serum 2016 017 [facility], [address], [address], [place], [address], 7 13:44:32 HIV 1+2 AB + HIV 1 p24 Ag, qualit ative immuno assay, serum 2016 017 [facility], [address], [address], [place], [address], 7 16:23:35 hepati tis C virus Ab, serum 2016 017 [facility], [address], [address], [place], [address], 7 13:49:21 lipid panel, serum 2016 017 [facility], [address], [address], [place], [address], 7 15:25:00 CMP, serum or plasma 2016 017 [facility], [address], [address], [place], [address], 7 15:24:59 urinal ysis, comple te 2016 017 [facility], [address], [address], [place], [address], 7 14:22:51 CBC w/ auto diff 2016 017 [facility], [address] [facility], [place], [address], 7 14:43:09 CMP, serum or plasma 2014 015 abolcun Not available 6 08:24:20 lipid panel, serum 2014 015 abolcun Not available 6 08:24:20 Referral physic al therap ist referr al - Dx: lumbag o with L. sciati ca Evalua te and treat . 2017 018 JACOB Not available 8 09:28:04 nutrit ionist /limai donya referr al 2016 017 [email or web address] Not available 7 12:12:50 nutrit ionist /nigel naqvi referr al 2014 015 awychowski Not available 5 10:14:58 Procedures None record ed. Surgeries None record ed. Imaging electr ocardi ogram 2014 015 [email or web address] In-Office Order, Internal Use Only DO Not Attach Compendium DO Not Attach Compendium, Do Not Delete/merge, [id number] 5 22:20:20 Medication Orders Medrol (Derek) 4 mg tablet s in a dose pack 2017 018 INTERFACE [id number], [address] [place], [address], 8 13:40:31 ibupro fen 800 mg tablet 2017 018 INTERFACE [id number], [address] [place], [address], 8 13:40:58 cyclob enzapr ine 10 mg tablet 2017 018 INTERFACE [id number], [address] [place], [address], 8 13:41:49 Vitami n D3 25 mcg (1,000 unit) capsul e 2014 015 geoff [id number], [address] [place], [address], 6 11:02:35 Patient Targets Encounter Date Encounter Id Patient Goals Patient Target Last Modified By Organization Details Last Modified Time 04/21/2015 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 rodger Not available 04/21/2015 10:14:58 09/26/2016 [id number] detention goal of Excess Body Weight Loss % [...] By Organization Details Last Modified Time 02/03/2015 [id number] [facility] / Maxillofacial surgery. Dr. tovar [address] [place] [address]. [phone]. Karri is the contactI have reviewed the note and agree with the assessment and plan of care. rodger Not available 02/05/2015 22:20:20 04/21/2015 [id number] starting a weigh t loss plan: care instructions [email or web address] Not available 04/21/2015 10:14:58 Nutrition Referral and Weight Management Follow-up Information [email or web address] Not available 04/21/2015 10:14:58 09/26/2016 [id number] starting a weigh t loss plan: care instructions [email or web address] Not available 09/26/2016 11:33:49 Nutrition Referral and Weight Management Follow-up Information [email or web address] Not available 09/26/2016 16:40:27 04/21/2018 [id number] sciatica: care instructions Not available 04/21/2018 13:38:23 back care and preventing injuries: care instructions Not available 04/21/2018 13:38:23 Chart reviewed, agree with above assessment and plan. 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 for Body mass index 40+ [...] DO Not Attach Compendium, Do Not Delete/merge, [id number] 02/03/2015 09:28:46 02/04/2002/03/2015 elect rocar diogr am QRS Not Available In-Office Order Internal Use Only DO Not Attach Compendium DO Not Attach Compendium, Do Not Delete/merge, [id number] 02/03/2015 09:28:46 02/04/2002/03/2015 elect rocar diogr am DC Interval Not Available In-Off ice Order Internal Use Only DO Not Attach Compendium DO Not Attach Compendium, Do Not Delete/merge, [id number] 02/03/2015 09:28:46 02/04/2002/03/2015 elect rocar diogr am QRS Duration Not Available In-Of fice Order Internal Use Only DO Not Attach Compendium DO Not Attach Compendium, Do Not Delete/merge, [id number] 02/03/2015 09:28:46 02/04/2002/03/2015 elect rocar diogr am QT Interval Not Available In-Off ice Order Internal Use Only DO Not Attach Compendium DO Not Attach Compendium, Do Not Delete/merge, [id number] 02/03/2015 09:28:46 01/05/2001/04/2015 justina khanna am Rate & Rhythm Sinus rhythm 80 Not Available In-Office Order Internal Use Only DO Not Attach Compendium DO Not Attach Compendium, Do Not Delete/merge, [id number] 01/04/2015 09:27:26 01/05/2001/04/2015 justina epsteingr am DC Interval 152ms Not Available In-Off ice Order Internal Use Only DO Not Attach Compendium DO Not Attach Compendium, Do Not Delete/merge, [id number] 01/04/2015 09:27:26 01/05/2001/04/2015 justina epsteingr am QRS Duration 101ms Not Available In-Of fice Order Internal Use Only DO Not Attach Compendium DO Not Attach Compendium, Do Not Delete/merge, 01/04/2015 09:27:26 01/05/2001/04/2015 justina khanna am QT Interval 373ms Not Available In-Off [...] Choice, 01/04/2015 14:18:01/05/2001/04/2015 CBC w/ auto diff MCH 29.6 pg (27.0- 34.0) Not Available [facility] (Centralized Electronic Ordering - All Locations) Patient Can Go To The Location Of Their Choice, 01/04/2015 14:18:01/05/2001/04/2015 CBC w/ auto diff MCHC 34.2 % (33.0- 37.0) Not Available [facility] (Centralized Electronic Ordering - All Locations) Patient Can Go To The Location Of Their Choice, 01/04/2015 14:18:13 01/05/2001/04/2015 CBC w/ auto diff plt 305 K/mm3 [...] 01/04/2015 14:18:13 01/05/2001/04/2015 CBC w/ auto diff neut # 5.9 [...] 01/04/2015 14:18:01/05/2001/04/2015 CBC w/ auto diff baso 0.3 % [...] 09/30/2016 14:43:08 09/30/1909/30/2016 CBC w/ auto diff MCH 28.8 pg (27.0- 34.0) Not Available [facility] (Centralized Electronic Ordering - All Locations) Patient Can Go To The Location Of Their Choice, 09/30/2016 14:43:09/30/1909/30/2016 CBC w/ auto diff MCHC 33.4 g/dL (33.0- 37.0) Not Available [facility] (Centralized Electronic Ordering - All Locations) Patient Can Go To The Location Of Their Choice, 09/30/2016 14:43:09/30/1909/30/2016 CBC w/ auto diff plt 301 K/mm3 (150-4 60) Not Available [facility] (Centralized Electronic Ordering - All Locations) Patient Can Go To The Location Of Their Choice, 09/30/2016 14:43:09/30/1909/30/2016 CBC w/ auto diff RDW-SD 39.9 fL [...] The Location Of Their Choice, 09/30/2016 15:04:22 09/30/19 17 09/30/2016 CMP, serum or plasm a glucose 102 mg/dL (70-99 ) high Not Available [facility] (Centralized Electronic Ordering - All Locations) Patient Can Go To The Location Of Their Choice, 09/30/2016 15:24:59 09/30/19 17 09/30/2016 CMP, serum or plasm a BUN 16 mg/dL (6-20) Not Available [facility] (Centralized Electronic Ordering - All Locations) Patient Can Go To The Location Of Their Choice, 09/30/2016 15:24:59 09/30/19 17 09/30/2016 CMP, serum or plasm a creatinine 0.9 mg/dL (0.7-1 .2) Not Available [facility] (Centralized Electronic Ordering - All Locations) Patient Can Go To The Location Of Their Choice, 09/30/2016 15:24:59 09/30/19 17 09/30/2016 CMP, serum or plasm a sodium 140 mmol/ L (133-1 45) Not Available [facility] (Centralized Electronic Ordering - All Locations) Patient Can Go To The Location Of Their Choice, 09/30/2016 15:24:59 09/30/19 17 09/30/2016 CMP, serum or plasm a potassium 4.3 mmol/ L (3.6-5 .2) Not Available [facility] (Centralized Electronic Ordering - All Locations) Patient Can Go To The Location Of Their Choice, 09/30/2016 15:24:59 09/30/19 17 09/30/2016 CMP, serum or plasm a chloride 101 mmol/ L (98-10 7) Not Available [facility] (Centralized Electronic Ordering - All Locations) Patient Can Go To The Location Of Their Choice, 09/30/2016 15:24:59 09/30/1909/30/2016 CMP, serum or plasm a bicarbonate 25 mmol/ L (22-29 ) Not Available [facility] (Centralized Electronic Ordering - All Locations) Patient Can Go To The Location Of Their Choice, 09/30/2016 15:24:59 09/30/19 17 09/30/2016 CMP, serum or plasm a anion gap [...] Go To The Location Of Their Choice, [id number] 09/30/2016 15:25:00 09/30/19 17 09/30/2016 lipid panel , serum non HDL cholesterol (calc) 119 mg/dL (<160) Not Available [facility] (Centralized Electronic Ordering - All Locations) Patient Can Go To The Location Of Their Choice, [id number] 09/30/2016 15:25:00 09/30/19 17 09/30/2016 HIV 1+2 [...] Go To The Location Of Their Choice, [id number] 09/30/2016 16:23:35 09/30/19 17 10/01/2016 vitam in D, 25-hy droxy , total , serum 25OH vitamin D 15.4 NG/mL (20-50 ) low SERUM 25OHD : 12 TO 19 NG/ML : AT RISK OF VITAM IN D INADE QUACY . Refer ence: [facility] Data Brief : No.59 October: Vitam in D Statu s: Unite d State s: 2000- 2005 Not Available [facility] (Centralized Electronic Ordering - All Locations) Patient Can Go To The Location Of Their Choice, [id number] 10/01/2016 01:42:57 09/30/19 17 10/01/2016 HBsAg (hepa titis B surfa ce Ag), serum hep. B surf. Ag NEGAT RODRIGO REFER ENCE RANGE : NEGAT RODRIGO Not Available [facility] (Centralized Electronic Ordering - All Locations) Patient Can Go To The Location Of Their Choice, [id number] 10/01/2016 12:33:47 09/30/19 17 10/01/2016 CT, DNA, qual, PCR, unspe cifie d speci men urine chlamydia amp probe NEGAT RODRIGO No Chlam ydia Trach omati s RNA detec genna in this patie nt's sampl e (REFE RENCE RANGE /NORM AL VALUE : NOT DETEC GENNA) Not Available [facility] (Centralized Electronic Ordering - All Locations) Patient Can Go To The Location Of Their Choice, [id number] 10/01/2016 13:14:07 09/30/19 17 10/01/2016 NG DNA, [...] neede d. Conta ct phone numbe r . Thera peuti c failu re or succe ss canno t be deter mined with the Aptim a Combo 2 assay since nucle ic acid may persi st follo wing appro priat e antim icrob ial thera py. [facility] ([facility]) recom mends confi rmato ry retes ting using cultu re or a diffe rent nucle ic acid ampli ficat ion test when posit rodrigo resul ts occur , if indic ated. Not Available [facility] (Centralized Electronic Ordering - All Locations) Patient Can Go To The Location Of Their Choice, 10/01/2016 13:14:08 09/30/19 17 10/01/2016 RPR (rapi [...] The Location Of Their Choice, 10/01/2016 13:44:32 09/30/1910/01/2016 hepat itis C virus Ab, serum anti-hepatit is C NEGAT RODRIGO REFER ENCE RANGE : NEGAT RODRIGO Not Available [facility] (Centralized Electronic Ordering - All Locations) Patient Can Go To The Location Of Their Choice, 10/01/2016 13:49:21 01/05/20 15 elect rocar tetegr am No observ ation record ed. [email or web address] Not Available 2014 09:51:19 02/04/20 15 elect rocar diogr am No observ ation record ed. [email or web address] Not Available 04/21 10:02:55 Result Notes None recorded. Problems Name Problem SNOMED Code Status Onset Date Resolution Date Notes Provider Name and Address Organization Details Recorded Time Administ ration of diphther ia, pertussi s, and tetanus vaccine Completed 201304/11/2014 RECORDED 12/28/19 14 3:01PM BY ANTOINETTE ALARCON MA, ANNOTATI ON/ADDEN DUM Not Available [facility] 4 05:27:12 Impacted tooth 530831897 Completed 04/21/2015 Peter Hayward MD [address], [place], [address] , [facility] 5 09:56:33 Body mass index 40+ - severely obese 451953853 Active Peter Hayward MD [address], [place], [address] , [facility] 5 10:14:58 Vitamin D deficien cy 98843956 Active Peter Hayward MD [address], [place], [address] , [facility] 5 10:14:58 Viral syndrome 498492377 Completed 09/26/2016 Peter Hayward MD [address], [place], [address] , [facility] 7 11:13:37 Lumbago with sciatica 413361987 Active 2017 Elisa Noonan PA-C [address], [place], [address] , [facility] 8 13:38:11 Depressi ve disorder 17563459 Completed 201309/26/2016 Peter Hayward MD [address], [place], [address] , [facility] 7 11:13:33 Tobacco user 794541051 Completed 201304/21/2015 RECORDED 12/28/19 14 3:00PM BY ANTOINETTE ALARCON MA, SALBADOR ON/ADDEN DUM [facility] 5 09:41:10 Headache 33782424 Active 2013 Peter Hayward MD [address] [facility] [place] [place] [address], [place], [address] , [facility] 7 11:13:28 Migraine 85162125 Active 2013 Peter Hayward MD [address] [facility] [place] [place] [address], [place], [address] , [facility] 7 11:13:45 Pain of multiple joints 82054282 Completed 201304/21/2015 IMPRESSI ON: HAS SOME RISK FOR VITD DEFICIEN CY. IF NL AND SX'S PERSIST, PT ADVISED TO SCHEDULE F/U.; RECORDED 12/28/19 14 3:05PM BY PETER Cuellar MD, OFFICE VISIT Peter Hayward MD [address] [address], [place], [address] , [facility] 5 09:56:33 Morbid obesity 015580560 Completed 201309/26/2016 IMPRESSI ON: POTENTIA L CLAIM PROFESSIONAL HEALTH CONSEQUE NCES DISCUSSE D AND UNDERSTO OD. HEALTHIE R DIET AND EXERCISE HABITS ADVISED. ; RECORDED 12/28/19 14 3:05PM BY PETER Cuellar MD, OFFICE VISIT Peter Hayward MD [address] [facility] [place] [place] [place] [address], [place], [address] , [facility] 7 11:13:20 Administ ration of diphther ia, pertussi s, and tetanus vaccine Completed 201303/15/2014 RECORDED 12/28/19 14 3:01PM BY ANTOINETTE ALARCON MA, ANNOTATI ON/ADDEN DUM Not Available [facility] 4 14:15:30 Problem Notes None recorded. Procedures Surgical History Date Name Laterality Status Provider Name and Address Organization Details Recorded Time 5 Unlisted px dentalvlr strux completed Peter Hayward MD [address] [facility] [place] [place] [place] [address], [place], [address], [facility] 03/03/2015 09:26:51 Treatment of ankle fracture [facility] 08:21:25 Imaging Results None recorded. Procedure Notes None recorded. Medical Equipment None [...] Details Last Updated DateTime 7 162.56 cm 637510. 46 g 43.6 kg/m2 66 /min 98 % 98 % 96.8 [degF] 112 mm[Hg] 80 mm[Hg] Salome Taylor MA [facility] [place] [facility] 7 10:55:13 Date Recorded Body height Oxygen saturation Oxygen saturation in Arterial blood by Pulse oximetry Heart rate Body temperature Body weight Body mass index (BMI) Systolic blood pressure Diastolic blood pressure Provider Name and Address Organization Details Last Updated DateTime 6 162.56 cm 98 % 98 % 78 /min 98.4 [degF] 608856. 48728 g 45.5 kg/m2 118 mm[Hg] 74 mm[Hg] Antoinette kaur MA [facility] 6 11:00:16 Date Recorded Body height Body weight Body temperature Body mass index (BMI) Oxygen saturation Oxygen saturation in Arterial blood by Pulse oximetry Heart rate Systolic blood pressure Diastolic blood pressure Provider Name and Address Organization Details Last Updated DateTime 5 161.29 cm 114719. 285482 g 98.3 [degF] 45.8 kg/m2 99 % 99 % 88 /min 126 mm[Hg] 81 mm[Hg] Kirsten Hutson MA [facility] 5 09:00:33 Date Recorded Body weight Oxygen saturation Oxygen saturation in Arterial blood by Pulse oximetry Body height Body mass index (BMI) Body temperature Heart rate Systolic blood pressure Diastolic blood pressure Provider Name and Address Organization Details Last Updated DateTime 5 972437. 0162 g 97 % 97 % 162.56 cm 44.6 kg/m2 98.2 [degF] 83 /min 116 mm[Hg] 78 mm[Hg] Antionette kaur MA [facility] 5 09:43:01 Date Recorded Body height Body mass index (BMI) Body weight Heart rate Oxygen saturation Oxygen saturation in Arterial blood by Pulse oximetry Body temperature Systolic blood pressure Diastolic blood pressure Provider Name and Address Organization Details Last Updated DateTime 8 162.56 cm 36.7 kg/m2 16125.7 7 g 73 /min 97 % 97 % 97.3 [degF] 118 mm[Hg] 72 mm[Hg] Mitchell Santoro [facility] 8 13:12:51 Social History Question Answer Notes LastModified by Organizat ion Details LastModified Time Tobacco Smoking Status Former Smoker quit in 2010 Not Available [facility] 07/04/2020 03:36:38 Do You Have An Advance Directive? Yes HCP/ Mom-Sasha [id number] Information not available 07/04/2020 Is Blood Transfusion Acceptable In An Emergency? No [id number] Information not available 07/04/2020 What Is Your Level Of Caffeine Consumption? Moderate 2-3 Servings Of Coffee Daily, No More Soda, No Energy Drinks [id number] Information not available 07/04/2020 How Much Tobacco Do You Chew? None [id number] Information not available 07/04/2020 What Type Of Diet Are You Following? REGULAR [id number] Information not available 07/04/2020 Which Illicit Or Recreational Drugs Have You Used? None [id number] Information not available 07/04/2020 Live Alone Or With Others? With Others Parents, Dtr, Brother esau Information not available 01/04/2015 Do You Take [...] Of Your Most Recent Tobacco Screening? 04/21/2018 [id number] Information not available 07/04/2020 How Many Children Do You Have? 1 Daughter [id number] Information not available 07/04/2020 Do You Use Protection During Sex? Usually [id number] Information not available 07/04/2020 Seat Belts Used Routinely Yes Information not available 04/21/2015 Are You Sexually Active? Yes [id number] Information not available 07/04/2020 Smoke Alarm In Home Yes Information not available 04/21/2015 At What Age Did You Start Smoking Tobacco? 23 [id number] Information not available 07/04/2020 Are You Passively Exposed To Smoke? No [email or web address] Information not available 09/26/2016 How Much Tobacco Do You Smoke? 0.25 PPD [id number] Information not available 07/04/2020 Do You Use Sunscreen Routinely? No [id number] Information not available 07/04/2020 How Many Years Have You Smoked Tobacco? 8 [id number] Information not available 07/04/2020 Sex: Unknown Functional Status Question Answer Note LastModified by Organizat ion Details LastModified Time What is your level of alcohol consumption? Occasional [id number] Information not available 07/04/2020 Are you currently employed? Yes [id number] Information not available 07/04/2020 Are you able to care for yourself? 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 Occasional [id number] Information not available 07/04/2020 Mental Status None [...] 11:15:18 Daughter Well adult awychowski Not crystal ilable 09/26/2016 11:15:28 Medical History Condition Response Coronary [...] Recorded Time Tdap 12/27/2013 completed Not Available [facility] 03/15/2014 13:52:59 Past Encounters Encounter ID Performer Location Encounter Start Date Encounter Closed Date Diagnosis/Indication Diagnosis SNOMED-CT Code Diagnosis ICD10 Code Diagnosis Note [id number] [facility] erce [address] [place] [address] [address] [place] [address] 12/27/2013 00:00:00 [id number] Meghan Humphries [facility] Main Office [address] [place] [phone] 01/04/2015 09:19:23 01/04/2015 09:53:21 Pre-surgery evaluation [id number] Patient is low cardiac risk for wisdom teeth extraction , EKG normal sinus rhythm, labs pending, no further work-up necessary. Impacted tooth 916995273 Having all 4 wisdom teeth extracted with Dr. De Anda on 01/11/15. Body mass index 40+ - severely obese 243490913 Patient is interested in weight loss. He has been trying to cut back on soda, fast foods and eating oatmeal for breakfast as well as drinking more water but is still eating a good amount of fried foods, meats. Discussed exercise, dietary changes, he would like a [facility] [id number] Ronak Hallman [facility] Main Office [address] [place] [phone] 02/03/2015 08:50:28 02/03/2015 09:48:15 Pre-surgery evaluation 751949705 George is at low cardiopulm onary risk for this procedure, no further testing indicated. His EKG is a variant of normal. Impacted tooth 674011768 [id number] Peter Hayward MD Main Office [address] [address] [place] [address] 04/21/2015 09:23:20 04/21/2015 10:14:30 Adult health examination 443711549 Immunizati on status utd, will screen based on risk factors. Regular dental and ophtho care advised as well as seatbelt and sunscreen use. Distracted driving discussed. Advance directives in place. Body mass index 40+ - severely obese 715877712 Vitamin D deficiency 16649796 Has not started supplement . Will defer reassessme nt until taking supplement regularly. [id number] Florian Tyler MD Main Office [address] [address] [place] [address] 11/10/2015 10:47:41 11/10/2015 11:44:30 Viral syndrome 578103251 B34.9 [id number] Peter Hayward MD Main Office [address] [address] [place] [address] 09/26/2016 10:45:43 09/26/2016 11:34:47 Adult health examination 641287182 Z00.00 Immunizati on status utd, will screen based on risk factors. Regular dental and ophtho care advised as well as seat belt and sunscreen use. Distracted driving discussed. Advance directives in place. Body mass index 40+ - severely obese 982735382 Z68.41 E66.01 Vitamin D deficiency 347 27760 E55.9 Not taking supplement . Will see if needed. Exposure t o sexually transmissible disorder 767947868 Z20.2 Pt asks for screening based on suspicions of his ex . [id number] Elisa Noonan PA-C Main Office [address] [address] [place] [address] 04/21/2018 13:05:36 04/21/2018 13:47:50 Lumbago with sciatica 475432605 M54.40 Tentative f/u in 4 weeks after course of PT. Health Concerns Section Related Observation LastModified by Organization Detai ls LastModified Time None Recorded Concern Status LastModified by Organization Details LastModified Time None Recorded Advance Directives Directive Y: HCP/ Mom-Sasha Payers Encounter Date Sequence Insurance Name Policy Number Policy Garcia Covered Member ID Garcia Member ID Guarantor Name 02/03/2015 1 [employer] [id number] George Bunchado [id number] George Velazquezdonado 04/21/2015 1 [employer] [id number] George Velazquezdonado [id number] George Velazquezdonado 11/10/2015 1 [employer] [id number] George Velazquezdonado [id number] 1 [id number] George Velazquezdonado 09/26/2016 1 [employer] [id number] George Velazquezdonado [id number] 1 [id number] George Velazquezdonado 04/21/2018 1 [employer] [id number] George Velazquezdonado [id number] 1 [id number] George Tenorio Notes Date Note Type Note Provider Name and Address Organization Details Recorded Time 02/03/2015 text/html preop for wisdom tooth extraction. he had pre-op last month but he had to reschedule so it will be more than 30 days since previous. he is able to walk 2 flights of stairs with no CP or SOB Peter Hayward MD [address], [id number], [facility] [place] 02/05/2015 22:20:20 11/10/2015 text/html Upper Respirator y SymptomsReported bypatient.Location:hea d; chest Quality:congested;dry cough Severity:moderate Context:non-smoker;sic k contact Modifying Factors:OTC medication Associated Symptoms:no shortness of breath; no wheezing; no feverNotes:Notes symtpoms of congestion, cough, headache. Some improvement with OTC decongestants. Florian Tyler MD [address], [id number], [facility] [place] 11/12/2015 15:27:38 09/26/2016 text/html Generic HPI TemplateReported bypatient.Notes:Feels well, here for physical. Seeing dentist but no ophtho eval in the past. Peter Hayward MD [address] [address], [place], [phone], [facility] [place] 09/26/2016 12:53:40 04/21/2018 text/html 37 year old male c/o low back pain started 5 days ago in the am after waking up. Pt. did not reinjure his back recently, but standing, walking and lifting 20-40 lb bags at wk. Had low back injury last year and was followed for [facility] and underwent rehab through them. He was discharged from that treatment with occasional back soreness in the am.Pt. is taking Advil 400 mg BID for past 3 days with minimal relief. Pain radiates from L. Lower back to gluteal area and posterior thigh worse with standing or walking. No weakness or numbness. Peter Hayward MD [address] [facility] [place] [place] [address], [place], [phone], [facility] [place] 04/22/2018 12:43:52
[2025-01-28 08:10] VITALS: BP 138/90; PULSE 80; TEMP 36.7; O2SAT 96; BMI 45.4
--- NOTE | 2025-01-28 08:10 | AM.OFFWIN_ITS ---
Intake Vital Signs 01/28/25 08:10 Height 5 ft 5 in Weight 273 lb BMI 45.4 BP 138/90 H Blood Pressure Location Lt brachial Position Sitting Pulse 80 Pulse Source Pulse Oximeter Temp 98.0 F Temp Source Oral Pulse Oximetry (%) 96 Oxygen Delivery Method Room Air Intake Visit Reasons: EP-lt knee pain Intake Note: Pt presents to the office today for c/o left knee pain. Pt states about 2 years ago he had an injury to his left knee by jumping. Pt states the pain went away but last week he was at work and he started experiencing pain again to his left knee. Patient Tobacco Use Status: Former Tobacco user Allergies No Known Allergies Allergy (Verified 01/28/25 08:16) HPI HPI Comments History of Present Illness Details History of Present Illness - The patient is a 44-year-old male pres enting with knee pain and difficulty walking. - Initially, the knee issue began with a sprain in October 2022 during an obstacle course activity. - The patient reports significant pain w hen bending the knee, localized on the lateral side beneath the kneecap, but experiences no pain when extending the knee. - The patient has not experienced any ad ditional trauma; however, regular activity has exacerbated the symptoms. - The previous injury history and the ab sence of pain in other regions of the k nee suggest a re-sprain, potentially complicated by bursitis. - The patient has access to the knee bra ce provided earlier and has not used crutches. Physical Exam General: Cooperative, healthy appearing, comfortable, no acute distress and well developed Orientation: Patient oriented x3 Limitations: Limited ability to walk due to knee pain Head: Normal to inspection Ears: Hearing grossly normal bilaterally Nose: Normal External nose present Face and sinus: Normal facial exam Eyes: Appearance normal, both eyes and all related structures Neck: Normal visual inspection and Yes full ROM Respiratory: Normal respiratory effort and able to speak in complete sentences. Skin: No rashes or lesions noted Neuro: Patient oriented x3 Extremities: TTP infrapatellar and lateral left knee, no joint laxity, no skin changes, no TTP otherwise, full ROM with some pain with left knee flexion. PFSH Family History Maternal Uncle Mental health disorder Social History Housing: House Alcohol intake: current Alcohol intake frequency: holidays/special occasions only Patient Tobacco Use Status: Former Tobacco user Years Smoked: quit 14 years ago e-Cigarette/Vaping Use: Currently Using Second Hand Smoke Exposure: No service: No Current occupational status: employed Current occupation: [employer] Current occupational exposures/hazards: Yes Cognitive needs: No Hearing needs: No Vision needs: No Review of Systems Const All systems reviewed & are unremarkable except as noted in HPI and below Physical Exam Vital Signs: Last Vital Signs Temp 98.0 F 01/28/25 08:10 Pulse 80 01/28/25 08:10 BP 138/90 H 01/28/25 08:10 Pulse Ox 96 01/28/25 08:10 Oxygen Delivery Method Room Air 01/28/25 08:10 BMI result Body Mass Index 45.4 Assessment & Plan Assessment & Plan (1) Left knee sprain: Code(s): S83.92XA - Sprain of unspecified site of left knee, initial encounter Qualifiers: Encounter type: initial encounter Involved ligament of knee: lateral collateral ligament Qualified Code(s): S83.422A - Sprain of lateral collateral ligament of left knee, initial encounter Plan: Sprain vs bursitis. The patient will manage his knee issues with a combination of supportive measures and medication. He should use the knee brace previously provided and apply ice to the affected area to alleviate pain and swelling. Meloxicam, an NSAID, is prescribed for short-term use to reduce inflammation. The patient is advised against taking other NSAIDs alongside meloxicam and may use Tylenol if needed for additional pain control. Rest is emphasized, along with considering the use of crutches to limit strain on the knee. If there is no improvement, further orthopedic assessment may be necessary. Wrote patient a work note for yesterday and today, going back on January 29 with the following restriction; that he may be allowed to sit as often as every 30 minutes for 10 minutes at a time to rest his knee. Advised that his employer might need him to come back to the walk-in to lift the restriction when he is feeling better. Patient was informed and verbally consented to the use of an ambient scribe for clinic note documentation during this visit. Medications: New meloxicam 15 mg PO DAILY 15 tabs 0RF Coding Level of Care Code Est Pt Level 3 (93761) Diagnoses Sprain of lateral collateral ligament of left knee, initial encounter S83.422A Encounter type: initial encounter Involved ligament of knee: lateral collateral ligament
== END 2025-01-28 09:21 | disposition home or self-care (01) ==
PROVIDERS: PCP Nurse Practitioner Family; Visit Provider Physician Assistant
DX: S83.422A Sprain of lateral collateral ligament of left knee, initial encounter (principal); Z04.2 Encounter for examination and observation following work accident

== ENCOUNTER → 2025-01-28 08:01 | Outpatient (BNVA) | payer OTHER, SELFPAY | PROVIDERS: PCP Nurse Practitioner Family; Visit Provider Physician Assistant | DX: Z13.89 Encounter for screening for other disorder (principal) ==